=== PATIENT | female | born 1965 | race Caucasian/White ===

== ENCOUNTER → 2016-04-22 | Outpatient (CLI) | payer BC ==
[~2016-04-22] MED LIST: /AUGM875TA OR; ACETAMIN PO; ALEV220C2 PO; ALRE0.5S OU; AMIT24CA5 PO; BUTALB PO; CAFF PO; CHASTE TREE PO; CHLORAPHIL PO; CHLOROPHYLL PO; CIPR500T89 PO; DULO1CAP2 PO; DYMI137S; FIORTAB PO; FLAG500T PO; FOLI1TAB2 PO; HUMI40KI2 SC; IMIT100T OR; ISOVUE-M 300 61% 15ML VIAL (Q9967) As Ordered ONE; LEVOTAB10 PO; LIDO1DIS2 TD; LIDOCAINE 1% SDV INJ 30 ML VIAL As Ordered ONE; MELA5TAB13 PO; META800T82 PO; METH2.5TA PO; MOVA1TAB2 PO; NEXI40CA PO; OSPH1TAB PO; OYST500T PO; PRED5TA PO; PROBCAP4 PO; REST0.05 OP; ROBA500T PO; SING10TA32 PO; SOMA350T PO; TPS CREAM EXT; TRAM37.5 PO; TRAZ50TA2 PO; VICO5TA PO; XANA0.25 PO; XANA0.5T PO; ZANA4CAP PO; [UNRECOGNIZED DRUG - CODE] PO; [UNRECOGNIZED DRUG - CODE] PO; [UNRECOGNIZED DRUG - OTHER] OU; [UNRECOGNIZED DRUG - OTHER] PO; [UNRECOGNIZED DRUG - OTHER] PO; [UNRECOGNIZED DRUG - OTHER] PO; [UNRECOGNIZED DRUG - OTHER] PO; [UNRECOGNIZED DRUG - OTHER] PO; [UNRECOGNIZED DRUG - OTHER] PO; [UNRECOGNIZED DRUG - OTHER] PO; [UNRECOGNIZED DRUG - OTHER] PO; [UNRECOGNIZED DRUG - OTHER] PO; [UNRECOGNIZED DRUG - REMARK] TOP; allegra PO; cataplex PO; diazePAM 5 MG TAB As Ordered ONE; iodine PO; methylPREDNISolone SUSP 40 MG/ML (DEPO-medrol) VIAL (J1030) As Ordered ONE; oxyCODONE 5MG TAB As Ordered ONE; pataday; plaquinel PO; probiotic PO; tumeric PO
--- NOTE | 2016-04-22 16:50 | REP ---
Coccyx series: Three views limited study. History: Caudal epidural steroid injection for pain. 9 seconds of fluoroscopy time is reported. Findings: A sequence of three fluoroscopically obtained procedural spot radiographs of the coccyx demonstrate needle position and contrast injection associated with caudal epidural injection procedure. Signed by Travis Diego MD 04/22/2016 09:59 P
--- NOTE | 2016-04-27 01:43 | ECWPNPC ---
PATIENT NAME: DUANE TENORIO : 1965 GENDER: FEMALE VISIT DATE: 04/22/2016 DISCHARGE DATE: 04/22/16 1109 VISIT LOCKED DATE TIME: PHYSICIAN: DANICA JOHNSON PHYSICIAN PAGER NO: [phone] RESOURCE: DANICA JOHNSON REASON FOR APPOINTMENT 1. CAUDAL EPIDURAL CURRENT MEDICATIONS TAKING HYDROCODONE-ACETAMINOPHEN 5-325 MG TABLET 1 TABLET NEEDED ORALLY EVERY 6 HRS PRN FOR PAIN MDD2, NOTES: MORE THAN A MONTH TAKING IMITREX 100 MG TABLET DIRECTED ORALLY , NOTES: 1 MONTH TAKING AMITIZA 24 MCG CAPSULE 1 CAPSULE WITH FOOD ORALLY ONCE A DAY, NOTES: 04-21-161729 TAKING NEXIUM 40 MG CAPSULE DELAYED RELEASE 1 CAPSULE ORALLY ONCE A DAY, NOTES: 04-22-16499 TAKING SINGULAIR 10 MG TABLET 1 TABLET IN THE EVENING ORALLY ONCE A DAY, NOTES: 1729 TAKING LEVOCETIRIZINE DIHYDROCHLORIDE 5 MG TABLET 1 TABLET IN THE EVENING ORALLY ONCE A DAY, NOTES: 04-21-161729 TAKING DULOXETINE HCL 30 MG CAPSULE DELAYED RELEASE PARTICLES 1 CAPSULE ORALLY ONCE A DAY, NOTES: 04-22-16499 TAKING DYMISTA 137-50 MCG/ACT SUSPENSION 1 SPRAY IN EACH NOSTRIL NASALLY TWICE A DAY, NOTES: 04-21-161729 TAKING PATADAY 0.2 % SOLUTION 1 DROP OPHTHALMIC DAILY, NOTES: 04-21-161729 TAKING CULTURELLE DIGESTIVE HEALTH - CAPSULE ORALLY DAILY, NOTES: 04-22-16499 TAKING XANAX 0.25 MG TABLET 1 TABLET ORALLY DAILY NEEDED., NOTES: 2 DAYS AGO TAKING SOMA 350 MG TABLET 1 TABLET NEEDED ORALLY BEFORE BEDTIME FOR SPASMS AND PAIN, NOTES: OVER A MONTH TAKING CIMZIA 2 X 200 MG KIT SUBCUTANEOUS 1 INJECTION OF 200 MG EVERY 2 WEEK, NOTES: 04-07-16 NOT-TAKING HUMIRA PEN 40 MG/0.8ML KIT 0.8 ML SUBCUTANEOUS EVERY TWO WEEKS, NOTES: 2 WEEKS NOT-TAKING IMITREX STATDOSE SYSTEM 4 MG/0.5ML KIT DIRECTED SUBCUTANEOUS NOT-TAKING ALREX 0.2 % SUSPENSION 1 DROP INTO AFFECTED EYE OPHTHALMIC FOUR TIMES A DAY MEDICATION LIST REVIEWED AND RECONCILED WITH THE PATIENT PAST MEDICAL HISTORY "SACRAL INSTABILITY" PER DR. DONOVAN SINCE FALLIN ON BUTTOCKS DURING A ROLLERBLADING ACCIDENT DYSPEPSIA/GERD DJD STATUS POST L5/S1 LAM[address] BRODERICK 2000 MIGRAINE HEADACHES OVEWEIGHT ALLERGIC RHINITIS/CONJUNCTIVITIS RECURRENT SINUSITIS STATUS POST SINUS SURGERY X2 BY DR[address] LAU VITAMIN D DEFICIENCY HISTORY OF IDIOPATHIC INCREASED AST/ALT SYSEMTIC LUPUS ALLERGIES PLAQUENIL: RASH: ALLERGY TAPE: RASH: ALLERGY ENVIRONMENTAL: ITCHING RASH: ALLERGY TEGADERM/OPSITE: BLISTERS, REDNESS, ITCHING: ALLERGY SURGICAL HISTORY NO SURGICAL HISTORY DOCUMENTED. HOSPITALIZATION/MAJOR DIAGNOSTIC PROCEDURE NO HOSPITALIZATION HISTORY. VITAL SIGNS WT 160 LBS, HT 67 IN, BMI 25.06 INDEX, BP 119/76 MM HG, HR 62 /MIN, RR 16 /MIN, TEMP 98.0 F, OXYGEN SAT % 100%, NA INITIALS SC 08:59, REVIEWED BY: LS. ASSESSMENTS POSTLAMINECTOMY SYNDROME, NOT ELSEWHERE CLASSIFIED - M96.1 (PRIMARY) PROCEDURES PN CAUDAL EPIDURALS PRE PROCEDURE DIAGNOSIS LUMBAR POST LAMINECTOMY PAIN SYNDROME POST PROCEDURE DIAGNOSIS LUMBAR POST LAMINECTOMY PAIN SYNDROME PROCEDURE CAUDAL EPIDURAL STEROID INJECTION UNDER FLUOROSCOPIC GUIDANCE. SURGEON DR. DANICA JOHNSON EMERGING TECHNOLOGIES DIRECTOR NONE ANESTHESIA LOCAL PRE PROCEDURE NOTE THE PATIENT HAS HISTORY OF CHRONIC LOW BACK PAIN. I EVALUATE THE PATIENT AND REVIEWED THE CHART. I WENT OVER THE RISKS, ALTERNATIVES, AND BENEFITS ASSOCIATED WITH THIS PROCEDURE. THE PATIENT WOULD LIKE TO PROCEED AND GIVE CONSENT TO PERFORMED THE PROCEDURE. THE PATIENT DENIES UNEXPLAINABLE WEIGHT LOSS, FEVER, CHILLS, OR NEW CHANGES IN URINARY OR BOWEL CONTROL. DESCRIPTION OF PROCEDURE THE PATIENT WAS BROUGHT TO THE PROCEDURE ROOM AND PLACED IN THE PRONE POSITION. THE LUMBOSACRAL AREA WAS CLEANED WITH BETADINE SOLUTION AND DRAPED ASEPTICALLY. THE PROCEDURE WAS DONE UNDER STERILE CONDITIONS. I CHECKED LATERALITY AND THE LEVEL WHERE THE PROCEDURE WAS GOING TO BE PERFORMED WITH THE PATIENT AND THE SUPPORTING STAFF AT THE MOMENT OF THE TIME OUT IN THE PROCEDURE ROOM. UNDER FLUOROSCOPIC GUIDANCE, THE TARGET POINT WAS SELECTED AT THE EPIDURAL SPACE BELOW THE SACROCOCCYGEAL LIGAMENT. LIDOCAINE 0.5% WAS USE TO NUMB THE SKIN AND THE SUBCUTANEOUS TISSUE BELOW IT. AN EPIDURAL TUOHY NEEDLE, 17-GAUGE, WAS ADVANCED UNDER FLUOROSCOPIC GUIDANCE AND FOLLOWING PATIENT FEEDBACK UNTIL THE EPIDURAL SPACE WAS REACHED 6 CM DEEP INTO THE SKIN BY THE LOSS OF RESISTANCE TECHNIQUE. ISOVUE M DYE 30%, 0.25 ML, WAS INJECTED SHOWING ADEQUATE SPREAD OF THE DYE. THEN, A SOLUTION OF 6 ML OF NORMAL SALINE WITH DEPO-MEDROL 60 MG WAS INJECTED SLOWLY FOLLOWING THE PATIENT FEEDBACK. THERE WAS NO EVIDENCE OF BLOOD, PARESTHESIA OR CEREBROSPINAL FLUID DURING THE PROCEDURE. THE PATIENT WAS SENT TO THE RECOVERY ROOM. THE PATIENT WAS MOVING THE EXTREMITIES AND DOING WELL. THERE WAS NO COMPLICATION DURING THE PROCEDURE. FLUOROSCOPY TIME WAS 9 SECONDS POST PROCEDURE NOTE THE PATIENT WILL BE SEEN IN A FOLLOW UP IN THE NEXT FEW WEEKS. INSTRUCTIONS WERE GIVEN, QUESTIONS WERE ANSWERED, AND THE PATIENT EXPRESSED UNDERSTANDING AND AGREES WITH THE PLAN PROCEDURE CODES 23290 LUMBAR/SACRAL W/ IMAGING 6045F RADXPS IN END [id number] PXD FOLLOW UP 3 WEEKS ELECTRONICALLY SIGNED BY DANICA JOHNSON MD ON 04/26/2016 AT 01:32 PM EST DISCLAIMER : THIS IS A VISIT SUMMARY EXTRACTED FROM THE [employer] CHART. IT IS NOT A COPY OF THE [employer] PROGRESS NOTE. MTDD
== END ==
LOC: M PAIN 09:10
PROVIDERS: ATTEND Anesthesiology
DX: G89.29 Other chronic pain (principal); M96.1 Postlaminectomy syndrome, not elsewhere classified; M54.5 Low back pain; M51.37 Other intervertebral disc degeneration, lumbosacral region; M53.3 Sacrococcygeal disorders, not elsewhere classified; K21.9 Gastro-esophageal reflux disease without esophagitis; G43.909 Migraine, unspecified, not intractable, without status migrainosus; E66.3 Overweight; J30.89 Other allergic rhinitis; E55.9 Vitamin D deficiency, unspecified; M32.9 Systemic lupus erythematosus, unspecified; Z88.8 Allergy status to other drugs, medicaments and biological substances; L23.1 Allergic contact dermatitis due to adhesives; Z79.891 Long term (current) use of opiate analgesic; Z79.899 Other long term (current) drug therapy
CPT/HCPCS: 62323; J1030; Q9967

== ENCOUNTER → 2016-05-06 | Outpatient (CLI) | payer BC ==
[~2016-05-06] MED LIST changes: -ISOVUE-M 300 61% 15ML VIAL (Q9967) As Ordered ONE; -LIDOCAINE 1% SDV INJ 30 ML VIAL As Ordered ONE; -diazePAM 5 MG TAB As Ordered ONE; -methylPREDNISolone SUSP 40 MG/ML (DEPO-medrol) VIAL (J1030) As Ordered ONE; -oxyCODONE 5MG TAB As Ordered ONE
--- NOTE | 2016-05-12 23:36 | ECWPNPC ---
PATIENT NAME: DUANE TENORIO : 1965 GENDER: FEMALE VISIT DATE: 05/06/2016 DISCHARGE DATE: 05/06/16 1647 VISIT LOCKED DATE TIME: PHYSICIAN: DANICA JOHNSON PHYSICIAN PAGER NO: [phone] RESOURCE: DANICA JOHNSON REASON FOR APPOINTMENT 1. LOWER BACK HISTORY OF PRESENT ILLNESS HISTORY OF PRESENT ILLNESS: PAIN THE PATIENT DESCRIBES THE PAIN... 50 YEAR OLD FEMALE PATIENT WITH HISTORY OF CHRONIC BACK PAIN. PATIENT DESCRIBES THE PAIN SHOOTING, AND HAVING IT ALL THE TIME WITH A PAIN SCORE OF 3/10. PATIENT STATES THAT HER RIGHT LEG IS WEAKER AND SHE FEELS THAT WHEN SHE WALKS, SHE FEELS HER LEG DRAGGING. PATIENT STATES THAT SHE HAS A TINGLING/PRESSURE FEELING ON HIS RIGHT LEG. PATIENT RECEIVED A CAUDAL EPIDURAL ON 04-22-2016. PATIENT IS NOT SURE AT THIS PATIENT HOW THE INJECTION WORKED. PATIENT STATES 3 DAYS AFTER THE PROCEDURE SHE FELL ASLEEP ON THE COUCH, HAD A MUSCLE SPASM WOKE UP, ATTEMPTED TO GET UP AND FELL. PATIENT DENIES UNEXPLAINABLE WEIGHT LOSS, FEVER, CHILLS, NEW CHANGES ON HER URINARY OR BOWEL CONTROL. FALL RISK SCREENING: SCREENING :NO FALLS IN THE PAST YEAR CURRENT MEDICATIONS TAKING HYDROCODONE-ACETAMINOPHEN 5-325 MG TABLET 1 TABLET NEEDED ORALLY EVERY 6 HRS PRN FOR PAIN MDD2 TAKING IMITREX 100 MG TABLET DIRECTED ORALLY TAKING AMITIZA 24 MCG CAPSULE 1 CAPSULE WITH FOOD ORALLY ONCE A DAY TAKING NEXIUM 40 MG CAPSULE DELAYED RELEASE 1 CAPSULE ORALLY ONCE A DAY TAKING SINGULAIR 10 MG TABLET 1 TABLET IN THE EVENING ORALLY ONCE A DAY TAKING LEVOCETIRIZINE DIHYDROCHLORIDE 5 MG TABLET 1 TABLET IN THE EVENING ORALLY ONCE A DAY TAKING DULOXETINE HCL 30 MG CAPSULE DELAYED RELEASE PARTICLES 1 CAPSULE ORALLY ONCE A DAY TAKING DYMISTA 137-50 MCG/ACT SUSPENSION 1 SPRAY IN EACH NOSTRIL NASALLY TWICE A DAY TAKING PATADAY 0.2 % SOLUTION 1 DROP OPHTHALMIC DAILY TAKING CULTURELLE DIGESTIVE HEALTH - CAPSULE ORALLY DAILY TAKING XANAX 0.25 MG TABLET 1 TABLET ORALLY DAILY NEEDED. TAKING CIMZIA 2 X 200 MG KIT SUBCUTANEOUS 1 INJECTION OF 200 MG EVERY 2 WEEK, NOTES: 04-07-16 TAKING ULTRACET 37.5-325 MG TABLET 1 TABLETS NEEDED ORALLY EVERY 6 HRS FOR PAIN MDD4 TAKING METHOCARBAMOL 500 MG TABLET 10 ML NEEDED ORALLY EVERY 8 HRS PT TAKES 1/2 NOT-TAKING SOMA 350 MG TABLET 1 TABLET NEEDED ORALLY BEFORE BEDTIME FOR SPASMS AND PAIN, NOTES: OVER A MONTH NOT-TAKING HUMIRA PEN 40 MG/0.8ML KIT 0.8 ML SUBCUTANEOUS EVERY TWO WEEKS, NOTES: 2 WEEKS NOT-TAKING IMITREX STATDOSE SYSTEM 4 MG/0.5ML KIT DIRECTED SUBCUTANEOUS NOT-TAKING ALREX 0.2 % SUSPENSION 1 DROP INTO AFFECTED EYE OPHTHALMIC FOUR TIMES A DAY MEDICATION LIST REVIEWED AND RECONCILED WITH THE PATIENT PAST MEDICAL HISTORY "SACRAL INSTABILITY" PER DR. DONOVAN SINCE FALLIN ON BUTTOCKS DURING A ROLLERBLADING ACCIDENT DYSPEPSIA/GERD DJD STATUS POST L5/S1 LAM[address]CT[address] BRODERICK 2000 MIGRAINE HEADACHES OVEWEIGHT ALLERGIC RHINITIS/CONJUNCTIVITIS RECURRENT SINUSITIS STATUS POST SINUS SURGERY X2 BY DR[address] LAU VITAMIN D DEFICIENCY HISTORY OF IDIOPATHIC INCREASED AST/ALT SYSEMTIC LUPUS ALLERGIES PLAQUENIL: RASH: ALLERGY TAPE: RASH: ALLERGY ENVIRONMENTAL: ITCHING RASH: ALLERGY TEGADERM/OPSITE: BLISTERS, REDNESS, ITCHING: ALLERGY SURGICAL HISTORY APPENDECTOMY [id number] HERNIA 06/25 ESOPHAGEAL MANOMETRY WITH NONSPECIFIC ESOPHAGEAL MOTOR DISORDER WITH LOW VELOCITY OF PROPAGATION AND HIGH CONTRACTION IN MIDESOPHAGUS 06/25 FAMILY HISTORY NO FAMILY HISTORY DOCUMENTED. SOCIAL HISTORY GENERAL: TOBACCO USE ARE YOU A:NONSMOKER LEARNING BARRIERS / SPECIAL NEEDS ORIENTED TO PLAN OF CARE: PATIENT, PAIN MANAGEMENT PATIENT, ORIENTED TO PLAN OF CARE: PATIENT, PAIN MANAGEMENT PATIENT. NEW PATIENT PAIN DIARY TODAY'S VISITNOTES FROM 0-10, WHAT LEVEL IS YOUR PAIN TODAY?0 PAIN CLINIC PFS, CLERGY, PUBLIC HEALTH REFERRALS PFS REFERRAL NEEDED?NO CLERGY REFERRAL NEEDED?NO PUBLIC HEALTH REFERRAL NEEDED?NO WAS THE PROVIDER NOTIFIED OF ANY PERTINENT INFO?NO PFS REFERRAL NEEDED?NO CLERGY REFERRAL NEEDED?NO PUBLIC HEALTH REFERRAL NEEDED?NO WAS THE PROVIDER NOTIFIED OF ANY PERTINENT INFO?NO HOSPITALIZATION/MAJOR DIAGNOSTIC PROCEDURE NO HOSPITALIZATION HISTORY. REVIEW OF SYSTEMS CONSTITUTIONAL: ANY CHANGE IN YOUR MEDICAL CONDITION? NO . CHILLS NO . FEVER NO . INFECTION: DO YOU HAVE NEW INFECTIONS? NO . DO YOU HAVE HISTORY OF MRSA? NO . MUSCULOSKELETAL: ANY NEW PATTERNS OF PAIN OR NUMBNESS? YES SINCE PROCEDURE AND FALL . GASTROENTEROLOGY: ANY NEW CHANGE IN BOWEL CONTROL? NO . GENITOURINARY: ANY NEW CHANGE IN BLADDER CONTROL? NO . IS THERE A CHANCE YOU COULD BE ? NO . HEMATOLOGY/LYMPH: DO YOU TAKE ANY BLOOD THINNERS? (FOR EXAMPLE- COUMADIN, PLAVIX, AGGRENOX, PLATEL, PRADAXA, OR XARELTO) NO . WHEN WAS YOUR LAST DOSE? DATE: TIME: . NEUROLOGY: HAVE YOU FALLEN IN THE PAST 6 MONTHS? YES 3 DAYS AFTER PROCEDURE HERE . ANY NEW EXTREMITY NUMBNESS OR WEAKNESS? NO . CARDIOLOGY: DO YOU HAVE A PACEMAKER OR DEFIBRILLATOR? NO . RESPIRATORY: HAVE YOU BEEN SICK IN THE PAST WEEK? NO . FEVER NO . FLU LIKE SYMPTOMS? NO . COUGH NO . INTEGUMENTARY: DO YOU HAVE ANY RASHES OR OPEN SORES? NO . ALLERGIC/IMMUNO: ARE YOU ALLERGIC TO SHELLFISH OR IV DYE? NO . ANY NEW ALLERGIES? NO . PSYCHIATRIC: DO YOU HAVE THOUGHTS OF HURTING YOURSELF OR SOMEONE ELSE? NO . ARE YOU ABUSED, NEGLECTED, OR IN AN UNSAFE ENVIRONMENT? NO . ENDOCRINOLOGY: ARE YOU DIABETIC? NO . OTHER: DO YOU NEED ANY PRESCRIPTIONS? NO . IF YES, PLEASE LIST: ____ . ANY NEW PROBLEMS WITH YOUR MEDICATIONS? NO . WHEN DID YOU LAST EAT? ____ . WHEN DID YOU LAST DRINK? ____ . WHAT DID YOU LAST DRINK? ____ . NAME OF PERSON DRIVING YOU HOME? ____ . DO YOU HAVE ANY OTHER QUESTIONS OR CONCERNS NO . REVIEWED BY: PROVIDER: DANICA JOHNSON MD . VITAL SIGNS WT 160 LBS, HT 67 IN, BMI 25.06 INDEX, BP 127/69 MM HG, HR 90 /MIN, RR 16 /MIN, TEMP 98.6 F, OXYGEN SAT % 96%, NA INITIALS SC 15:10. EXAMINATION : PATIENT IS ALERT O X 3 AND COOPERATIVE. RIGHT LEG IS WEAKER AT EXTENSION AND FLEXION COMPARED TO THE LEFT LEG. 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 MRI OF THE LUMBAR SPINE DONE ON 01/09/16 SHOWS SPONDYLOSIS, FACET HYPERTROPHY, AND DISC BULGES AT L2-L3 AND L4-L5. ASSESSMENTS POSTLAMINECTOMY SYNDROME, NOT ELSEWHERE CLASSIFIED - M96.1 (PRIMARY) INTERVERTEBRAL DISC DISORDERS WITH RADICULOPATHY, LUMBAR REGION - M51.16 INTERVERTEBRAL DISC DISORDERS WITH RADICULOPATHY, LUMBOSACRAL REGION - M51.17 TREATMENT POSTLAMINECTOMY SYNDROME, NOT ELSEWHERE CLASSIFIED NOTES: WE DISCUSSES SEVERAL ISSUES WITH MS. MUKHERJEE'S PAIN MANAGEMENT CASE. AT THIS TIME THE PATIENT WILL CONTINUE WITH THE SAME MEDICATION REGIME BEFORE. AFTER FURTHER REVIEW OF THE MRI AT THIS TIME THE PATIENT IS A GOOD CANDIDATE FOR A TRANSFORAMINAL EPIDURAL. PATIENT WILL BE BOOKED PENDING APPROVAL. WE DISCUSSED THE RISK, ALTERNATIVES, AND BENEFITS AND THE PATIENT WOULD LIKE TO PROCEED. INSTRUCTIONS WERE GIVEN, QUESTIONS WERE ANSWERED, PATIENT REPORTS UNDERSTANDING AND AGREES WITH THE PLAN. I, MIRZA DE LA PAZ, DOCUMENTED THE ABOVE INFORMATION ACTING A SCRIBE FOR DR. JOHNSON. I HAVE REVIEWED THE ABOVE DOCUMENT, WRITTEN BY MIRZA DE LA PAZ SCRIBVelma AND I VERIFY THAT IT IS ACCURATE. PREVENTIVE MEDICINE PAIN CLINIC TEACHING: PROCEDURE TEACHING REVIEWED PRE PROCEDURE EUCATION WITH PT/ WHO VERBALIZES UNDERSTNADING. PROCEDURE CODES FA211 ESTABILISHED PATIENT [facility] CHARGE G8730 PAIN ASSESS POS TOOL F/U PLAN DOC G8427 DOC MEDS VERIFIED W/PT OR RE FOLLOW UP TRANSFORAMINAL PENDING APPROVAL ELECTRONICALLY SIGNED BY DANICA JOHNSON MD ON 05/12/2016 AT 09:36 PM EST DISCLAIMER : THIS IS A VISIT SUMMARY EXTRACTED FROM THE [employer] CHART. IT IS NOT A COPY OF THE [employer] PROGRESS NOTE. MTDD
== END ==
LOC: M PAIN 15:00
PROVIDERS: ATTEND Anesthesiology
DX: Z09 Encounter for follow-up examination after completed treatment for conditions other than malignant neoplasm (principal); G89.29 Other chronic pain; M96.1 Postlaminectomy syndrome, not elsewhere classified; M51.16 Intervertebral disc disorders with radiculopathy, lumbar region; M51.17 Intervertebral disc disorders with radiculopathy, lumbosacral region; K30 Functional dyspepsia; G43.909 Migraine, unspecified, not intractable, without status migrainosus; J32.9 Chronic sinusitis, unspecified; E55.9 Vitamin D deficiency, unspecified; M32.9 Systemic lupus erythematosus, unspecified; J30.89 Other allergic rhinitis; L23.1 Allergic contact dermatitis due to adhesives; J30.2 Other seasonal allergic rhinitis; Z88.8 Allergy status to other drugs, medicaments and biological substances; Z79.891 Long term (current) use of opiate analgesic; Z79.899 Other long term (current) drug therapy; Z87.39 Personal history of other diseases of the musculoskeletal system and connective tissue

== ENCOUNTER → 2016-05-20 | Outpatient (CLI) | payer BC ==
[2016-05-20 17:58] LABS: ANION GAP 7 MEQ/L (8-16); BLOOD UREA NITROGEN 16 MG/DL (7-18); CALCIUM LEVEL 9.3 MG/DL (8.5-10.1); CARBON DIOXIDE LEVEL 31 MEQ/L (21-32); CHLORIDE LEVEL 101 MEQ/L (98-107); CREATININE FOR GFR 0.89 MG/DL (0.55-1.02); GLOMERULAR FILTRATION RATE > 60.0 (>51); GLUCOSE, FASTING 75 MG/DL (70-105); MAGNESIUM LEVEL 2.4 MG/DL (1.8-2.4); POTASSIUM SERUM 4.1 MEQ/L (3.5-5.1); SODIUM LEVEL 139 MEQ/L (136-145)
== END | disposition home or self-care (01) ==
LOC: M SMT 15:21
PROVIDERS: ATTEND Physician Assistant
DX: G47.62 Sleep related leg cramps (principal)

== ENCOUNTER → 2016-05-26 | Outpatient (CLI) | payer BC ==
[~2016-05-26] MED LIST changes: +BUPIVACAINE HCL 0.25% 30 ML VIAL As Ordered ONE; +ISOVUE-M 300 61% 15ML VIAL (Q9967) As Ordered ONE; +LIDOCAINE 1% SDV INJ 30 ML VIAL As Ordered ONE; +MIDAZOLAM INJ 2 MG/2 ML VIAL (J2250) As Ordered ONE; +dexameTHASONE 10 MG/1 ML VIAL PRES.FREE (J1100) As Ordered ONE; +fentaNYL 100 MCG/2 ML INJECTION (J3010) As Ordered ONE
--- NOTE | 2016-05-26 16:37 | REP ---
Partial lumbar spine series: Six views. History: Transforaminal block procedure for pain. 1 minute 17 seconds of fluoroscopy time is reported. Findings: A sequence of six fluoroscopically obtained intraprocedural last image hold and angiographic spot images are presented. These document needle position and contrast injection associated with injection procedure. Signed by Travis Diego MD 05/26/2016 05:12 P
--- NOTE | 2016-05-28 23:56 | ECWPNPC ---
PATIENT NAME: DUANE TENORIO : 1965 GENDER: FEMALE VISIT DATE: 05/26/2016 DISCHARGE DATE: 05/26/16 1631 VISIT LOCKED DATE TIME: PHYSICIAN: DANICA JOHNSON PHYSICIAN PAGER NO: [phone] RESOURCE: DANICA JOHNSON REASON FOR APPOINTMENT 1. RIGHT TRANSFORAMINAL HISTORY OF PRESENT ILLNESS HISTORY OF PRESENT ILLNESS: PAIN THE PATIENT DESCRIBES THE PAIN... FALL RISK SCREENING: SCREENING :NO FALLS IN THE PAST YEAR CURRENT MEDICATIONS TAKING HYDROCODONE-ACETAMINOPHEN 5-325 MG TABLET 1 TABLET NEEDED ORALLY EVERY 6 HRS PRN FOR PAIN MDD2, NOTES: 3 WEEKS AGO TAKING IMITREX 100 MG TABLET DIRECTED ORALLY , NOTES: 1 MONTH TAKING AMITIZA 24 MCG CAPSULE 1 CAPSULE WITH FOOD ORALLY ONCE A DAY, NOTES: 05/25 4:30PM TAKING NEXIUM 40 MG CAPSULE DELAYED RELEASE 1 CAPSULE ORALLY ONCE A DAY, NOTES: 05/26 5AM TAKING SINGULAIR 10 MG TABLET 1 TABLET IN THE EVENING ORALLY ONCE A DAY, NOTES: 05/25 4:30PM TAKING LEVOCETIRIZINE DIHYDROCHLORIDE 5 MG TABLET 1 TABLET IN THE EVENING ORALLY ONCE A DAY, NOTES: 05/25 4:30PM TAKING DULOXETINE HCL 30 MG CAPSULE DELAYED RELEASE PARTICLES 1 CAPSULE ORALLY ONCE A DAY, NOTES: 05/26 5AM TAKING DYMISTA 137-50 MCG/ACT SUSPENSION 1 SPRAY IN EACH NOSTRIL NASALLY TWICE A DAY, NOTES: 05/25 4:30PM TAKING PATADAY 0.2 % SOLUTION 1 DROP OPHTHALMIC DAILY, NOTES: 05/26 2AM TAKING CULTURELLE DIGESTIVE HEALTH - CAPSULE ORALLY DAILY, NOTES: 05/26 5AM TAKING XANAX 0.25 MG TABLET 1 TABLET ORALLY DAILY NEEDED., NOTES: 05/23 8PM TAKING CIMZIA 2 X 200 MG KIT SUBCUTANEOUS 1 INJECTION OF 200 MG EVERY 2 WEEK, NOTES: 2 1/2 WEEKS AGO TAKING ULTRACET 37.5-325 MG TABLET 1 TABLETS NEEDED ORALLY EVERY 6 HRS FOR PAIN MDD4, NOTES: 3 WEEKS TAKING METHOCARBAMOL 500 MG TABLET 10 ML NEEDED ORALLY EVERY 8 HRS PT TAKES 1/2, NOTES: 4 DAYS AGO NOT-TAKING SOMA 350 MG TABLET 1 TABLET NEEDED ORALLY BEFORE BEDTIME FOR SPASMS AND PAIN, NOTES: OVER A MONTH NOT-TAKING HUMIRA PEN 40 MG/0.8ML KIT 0.8 ML SUBCUTANEOUS EVERY TWO WEEKS, NOTES: 2 WEEKS NOT-TAKING IMITREX STATDOSE SYSTEM 4 MG/0.5ML KIT DIRECTED SUBCUTANEOUS NOT-TAKING ALREX 0.2 % SUSPENSION 1 DROP INTO AFFECTED EYE OPHTHALMIC FOUR TIMES A DAY MEDICATION LIST REVIEWED AND RECONCILED WITH THE PATIENT PAST MEDICAL HISTORY "SACRAL INSTABILITY" PER DR. DONOVAN SINCE FALLIN ON BUTTOCKS DURING A ROLLERBLADING ACCIDENT DYSPEPSIA/GERD DJD STATUS POST L5/S1 LAM[address] BRODERICK 2000 MIGRAINE HEADACHES OVEWEIGHT ALLERGIC RHINITIS/CONJUNCTIVITIS RECURRENT SINUSITIS STATUS POST SINUS SURGERY X2 BY DR[address] LAU VITAMIN D DEFICIENCY HISTORY OF IDIOPATHIC INCREASED AST/ALT SYSEMTIC LUPUS ALLERGIES PLAQUENIL: RASH: ALLERGY TAPE: RASH: ALLERGY ENVIRONMENTAL: ITCHING RASH: ALLERGY TEGADERM/OPSITE: BLISTERS, REDNESS, ITCHING: ALLERGY SOCIAL HISTORY GENERAL: TOBACCO USE ARE YOU A:NONSMOKER LEARNING BARRIERS / SPECIAL NEEDS ORIENTED TO PLAN OF CARE: PATIENT, PAIN MANAGEMENT PATIENT, ORIENTED TO PLAN OF CARE: PATIENT, PAIN MANAGEMENT PATIENT. NEW PATIENT PAIN DIARY TODAY'S VISITNOTES FROM 0-10, WHAT LEVEL IS YOUR PAIN TODAY?0 PAIN CLINIC PFS, CLERGY, PUBLIC HEALTH REFERRALS PFS REFERRAL NEEDED?NO CLERGY REFERRAL NEEDED?NO PUBLIC HEALTH REFERRAL NEEDED?NO WAS THE PROVIDER NOTIFIED OF ANY PERTINENT INFO?NO PFS REFERRAL NEEDED?NO CLERGY REFERRAL NEEDED?NO PUBLIC HEALTH REFERRAL NEEDED?NO WAS THE PROVIDER NOTIFIED OF ANY PERTINENT INFO?NO REVIEW OF SYSTEMS CONSTITUTIONAL: ANY CHANGE IN YOUR MEDICAL CONDITION? NO . CHILLS NO . FEVER NO . INFECTION: DO YOU HAVE NEW INFECTIONS? NO . DO YOU HAVE HISTORY OF MRSA? NO . MUSCULOSKELETAL: ANY NEW PATTERNS OF PAIN OR NUMBNESS? NO . GASTROENTEROLOGY: ANY NEW CHANGE IN BOWEL CONTROL? NO . GENITOURINARY: ANY NEW CHANGE IN BLADDER CONTROL? NO . IS THERE A CHANCE YOU COULD BE ? NO . HEMATOLOGY/LYMPH: DO YOU TAKE ANY BLOOD THINNERS? (FOR EXAMPLE- COUMADIN, PLAVIX, AGGRENOX, PLATEL, PRADAXA, OR XARELTO) NO . WHEN WAS YOUR LAST DOSE? DATE: TIME: . NEUROLOGY: HAVE YOU FALLEN IN THE PAST 6 MONTHS? YES, PT STATES THAT SHE FELL TWO DAYS AFTER LAST INJECTION, 3 WEEKS AGO, PT WAS HOME, NO REPORT TO ED, PT STATES THAT SHE HAD INCREASED LEG PAIN INTO THE HIP. . ANY NEW EXTREMITY NUMBNESS OR WEAKNESS? NO . CARDIOLOGY: DO YOU HAVE A PACEMAKER OR DEFIBRILLATOR? NO . RESPIRATORY: HAVE YOU BEEN SICK IN THE PAST WEEK? NO . FEVER NO . FLU LIKE SYMPTOMS? NO . COUGH NO . INTEGUMENTARY: DO YOU HAVE ANY RASHES OR OPEN SORES? NO . ALLERGIC/IMMUNO: ARE YOU ALLERGIC TO SHELLFISH OR IV DYE? NO . ANY NEW ALLERGIES? NO . PSYCHIATRIC: DO YOU HAVE THOUGHTS OF HURTING YOURSELF OR SOMEONE ELSE? NO . ARE YOU ABUSED, NEGLECTED, OR IN AN UNSAFE ENVIRONMENT? NO . ENDOCRINOLOGY: ARE YOU DIABETIC? NO . OTHER: DO YOU NEED ANY PRESCRIPTIONS? NO . IF YES, PLEASE LIST: ____ . ANY NEW PROBLEMS WITH YOUR MEDICATIONS? NO . WHEN DID YOU LAST EAT? 05/26 5:30AM . WHEN DID YOU LAST DRINK? 05/26 12NOON . WHAT DID YOU LAST DRINK? WATER . NAME OF PERSON DRIVING YOU HOME? ALAYNA SOUSA . DO YOU HAVE ANY OTHER QUESTIONS OR CONCERNS NO . REVIEWED BY: PROVIDER: . VITAL SIGNS WT 160 LBS, HT 67 IN, BMI 25.06 INDEX, BP 117/55 MM HG, HR 84 /MIN, RR 16 /MIN, TEMP 97.2 F, OXYGEN SAT % 97%, SAFE IN ENV? (Y/N) Y, NA INITIALS [place] 14:19, REVIEWED BY: SARBJIT. ASSESSMENTS INTERVERTEBRAL DISC DISORDERS WITH RADICULOPATHY, LUMBAR REGION - M51.16 (PRIMARY) PROCEDURES PN LUMBAR TRANSFORAMINAL BLOCKS PRE PROCEDURE DIAGNOSIS LUMBAR POST LAMINECTOMY PAIN SYNDROME POST PROCEDURE DIAGNOSIS LUMBAR POST LAMINECTOMY PAIN SYNDROME PROCEDURE RIGHT L4 TRANSFORAMINAL EPIDURAL STEROID INJECTION UNDER FLUOROSCOPIC GUIDANCE AND L5 TRANSFORAMINAL EPIDURAL STEROID INJECTION UNDER FLUOROSCOPIC GUIDANCE SURGEON DR DANICA JOHNSON REHAB RN NONE ANESTHESIA LOCAL WITH IV SEDATION PRE PROCEDURE NOTE PATIENT WITH HISTORY OF CHRONIC LOW BACK PAIN. I EVALUATE THE PATIENT AND REVIEWED THE CHART. I WENT OVER THE RISKS, ALTERNATIVES, AND BENEFITS ASSOCIATED WITH THIS PROCEDURE. THE PATIENT WOULD LIKE TO PROCEED AND GIVE CONSENT TO PERFORMED THE PROCEDURE. AFTER DISCUSSED ALTERNATIVES THE PATIENT EXPRESSED THAT SHE WANT TO PERFORMED THE PROCEDURE WITH IV SEDATION. THE PATIENT DENIES UNEXPLAINABLE WEIGHT LOSS, FEVER, CHILLS, OR CHANGES IN URINARY OR BOWEL CONTROL. DESCRIPTION OF PROCEDURE THE PATIENT HAD IV PLACED FOR SEDATION PRIOR TO ENTERING THE ROOM. THE PATIENT WAS BROUGHT TO THE PROCEDURE ROOM AND PLACED IN THE PRONE POSITION. THE LUMBOSACRAL AREA WAS CLEANED WITH BETADINE SOLUTION AND DRAPED ASEPTICALLY. THE PROCEDURE WAS DONE UNDER STERILE CONDITIONS. I CHECKED LATERALITY AND THE LEVEL WHERE THE PROCEDURE WAS GOING TO BE PERFORMED WITH THE PATIENT AND THE SUPPORTING STAFF AT THE MOMENT OF THE TIME OUT IN THE PROCEDURE ROOM. UNDER FLUOROSCOPIC GUIDANCE, TARGETS WERE SELECTED AT THE RIGHT TRANSFORAMINAL OPENING OF L4 AND THE RIGHT TRANSFORAMINAL OPENING OF L5. TARGET POINT WAS SELECTED AFTER LATERAL ROTATION AND TILT OF THE MAGNIFIER OF THE C-ARM. LIDOCAINE 0.5% WAS USED TO NUMB THE SKIN AND THE SUBCUTANEOUS TISSUE BELOW IT. AN EPIMED INTRODUCER 18-GAUGE WAS ADVANCED UNTIL WE WENT CLOSE TO THE SELECTED TRANSFORAMINAL OPENINGS. AFTER PROPER POSITION OF THE NEEDLES WAS ACHIEVED, A 22-GAUGE EPIMED NEEDLE WAS PLACED INSIDE OF THE INTRODUCER AND ADVANCED TO THE TRANSFORAMINAL OPENING OF THE SELECTED SITES. WHEN PROPER POSITION OF THE NEEDLE WAS ACHIEVED, ISOVUE M DYE 30%, 0.25 ML, WAS INJECTED SHOWING ADEQUATE SPREAD OF THE DYE. THIS WAS DONE UNDER DIGITAL SUBTRACTION AND ANGIOGRAPHY. THERE WAS NO VASCULAR UPDATE. THEN, A SOLUTION OF 2 ML OF BUPIVACAINE 0.25% AND DEXAMETHASONE 10 MG WAS INJECTED AT EACH SITE. THERE WAS NO EVIDENCE OF BLOOD, PARESTHESIA OR CEREBROSPINAL FLUID DURING THE PROCEDURE. THE PATIENT WAS SENT TO THE RECOVERY ROOM. THE PATIENT WAS MOVING THE EXTREMITIES AND DOING WELL. THERE WAS NO COMPLICATION DURING THE PROCEDURE. FLUOROSCOPY TIME WAS 1 MINUTE 17 SECONDS. THE PATIENT RECEIVED VERSED AND FENTANYL IV DURING THE PROCEDURE. FACE TO FACE TIME WITH IV SEDATION WAS 25 MINUTES POST PROCEDURE NOTE THE PROCEDURE DONE WAS DISCUSSED WITH THE PATIENT. THE PATIENT WILL BE SEEN IN A FOLLOW UP IN THE NEXT FEW WEEKS. INSTRUCTIONS WERE GIVEN, QUESTIONS WERE ANSWERED, AND THE PATIENT EXPRESSED UNDERSTANDING AND AGREES WITH THE PLAN. I, JAROCHO SANDHU, DOCUMENTED THE ABOVE INFORMATION ACTING A SCRIBE FOR DR. JOHNSON. I, DR. JOHNSON, HAVE REVIEWED THE ABOVE DOCUMENT, SCRIBED BY JAROCHO SANDHU, AND I VERIFY THAT IT IS ACCURATE DIAGNOSTIC IMAGING [facility] GUIDE SPINE INJECTION (PAIN)[id number] PROCEDURE CODES 75868 INJ FORAMEN EPIDURAL L/S 75861 INJ FORAMEN EPIDURAL ADD-ON 63977 MOD SED SAME PHYS/QHP EA 6045F RADXPS IN END [id number] PXD 52905 MOD SED SAME PHYS/QHP 5/>YRS FOLLOW UP 3 WEEKS ELECTRONICALLY SIGNED BY DANICA JOHNSON MD ON 05/28/2016 AT 01:36 PM EST DISCLAIMER : THIS IS A VISIT SUMMARY EXTRACTED FROM THE [employer] CHART. IT IS NOT A COPY OF THE [employer] PROGRESS NOTE. MTDD
== END ==
LOC: M PAIN 14:20
PROVIDERS: ATTEND Anesthesiology
DX: G89.29 Other chronic pain (principal); M51.16 Intervertebral disc disorders with radiculopathy, lumbar region; K30 Functional dyspepsia; M51.37 Other intervertebral disc degeneration, lumbosacral region; G43.909 Migraine, unspecified, not intractable, without status migrainosus; J30.89 Other allergic rhinitis; J32.9 Chronic sinusitis, unspecified; E55.9 Vitamin D deficiency, unspecified; M32.9 Systemic lupus erythematosus, unspecified; Z88.8 Allergy status to other drugs, medicaments and biological substances; L23.1 Allergic contact dermatitis due to adhesives; Z79.891 Long term (current) use of opiate analgesic; Z79.899 Other long term (current) drug therapy; Z87.39 Personal history of other diseases of the musculoskeletal system and connective tissue
CPT/HCPCS: 64483; 64484; 99152; 99153; J1100; J2250; J3010; Q9967

== ENCOUNTER → 2016-07-05 | Outpatient (CLI) | payer BC ==
[~2016-07-05] MED LIST changes: -BUPIVACAINE HCL 0.25% 30 ML VIAL As Ordered ONE; -ISOVUE-M 300 61% 15ML VIAL (Q9967) As Ordered ONE; -LIDOCAINE 1% SDV INJ 30 ML VIAL As Ordered ONE; -MIDAZOLAM INJ 2 MG/2 ML VIAL (J2250) As Ordered ONE; -dexameTHASONE 10 MG/1 ML VIAL PRES.FREE (J1100) As Ordered ONE; -fentaNYL 100 MCG/2 ML INJECTION (J3010) As Ordered ONE
--- NOTE | 2016-07-06 00:01 | ECWPNPC ---
PATIENT NAME: DUANE TENORIO : 1965 GENDER: FEMALE VISIT DATE: 07/05/2016 DISCHARGE DATE: 07/05/16 1647 VISIT LOCKED DATE TIME: PHYSICIAN: DANICA JOHNSON PHYSICIAN PAGER NO: [phone] RESOURCE: DANICA JOHNSON REASON FOR APPOINTMENT 1. FOLLOW UP HISTORY OF PRESENT ILLNESS HISTORY OF PRESENT ILLNESS: PAIN THE PATIENT DESCRIBES THE PAIN... 50 YEAR OLD FEMALE PATIENT WITH HISTORY OF CHRONIC BACK PAIN. PATIENT DESCRIBES THE PAIN PRESSURE IN THE RIGHT CALF WITH A PAIN SCORE OF 1/10 ON TODAY'S VISIT. PATIENT RECEIVED A L4-L5 TRANSFORAMINAL ON 05/26/2016 AND REPORTS OF DOING VERY WELL FROM THE PROCEDURE. PATIENT REPORTS THAT SHE IS SLEEPING BETTER, ABLE TO STAND FOR LONGER PERIODS OF TIME, AND IT IMPROVED HER QUALITY OF LIFE. PATIENT DENIES UNEXPLAINABLE WEIGHT LOSS, FEVER, CHILLS, NEW CHANGES ON HER URINARY OR BOWEL CONTROL. FALL RISK SCREENING: SCREENING :NO FALLS IN THE PAST YEAR CURRENT MEDICATIONS TAKING HYDROCODONE-ACETAMINOPHEN 5-325 MG TABLET 1 TABLET NEEDED ORALLY EVERY 6 HRS PRN FOR PAIN MDD2 TAKING IMITREX 100 MG TABLET DIRECTED ORALLY TAKING AMITIZA 24 MCG CAPSULE 1 CAPSULE WITH FOOD ORALLY ONCE A DAY TAKING NEXIUM 40 MG CAPSULE DELAYED RELEASE 1 CAPSULE ORALLY ONCE A DAY TAKING SINGULAIR 10 MG TABLET 1 TABLET IN THE EVENING ORALLY ONCE A DAY TAKING LEVOCETIRIZINE DIHYDROCHLORIDE 5 MG TABLET 1 TABLET IN THE EVENING ORALLY ONCE A DAY, NOTES: 05/25 4:30PM TAKING DULOXETINE HCL 30 MG CAPSULE DELAYED RELEASE PARTICLES 1 CAPSULE ORALLY ONCE A DAY TAKING DYMISTA 137-50 MCG/ACT SUSPENSION 1 SPRAY IN EACH NOSTRIL NASALLY TWICE A DAY TAKING PATADAY 0.2 % SOLUTION 1 DROP OPHTHALMIC DAILY TAKING CULTURELLE DIGESTIVE HEALTH - CAPSULE ORALLY DAILY TAKING XANAX 0.25 MG TABLET 1 TABLET ORALLY DAILY NEEDED. TAKING CIMZIA 2 X 200 MG KIT SUBCUTANEOUS 1 INJECTION OF 200 MG EVERY 2 WEEK TAKING METHOCARBAMOL 500 MG TABLET 10 ML NEEDED ORALLY EVERY 8 HRS PT TAKES 1/2 NOT-TAKING ULTRACET 37.5-325 MG TABLET 1 TABLETS NEEDED ORALLY EVERY 6 HRS FOR PAIN MDD4 NOT-TAKING SOMA 350 MG TABLET 1 TABLET NEEDED ORALLY BEFORE BEDTIME FOR SPASMS AND PAIN, NOTES: OVER A MONTH NOT-TAKING HUMIRA PEN 40 MG/0.8ML KIT 0.8 ML SUBCUTANEOUS EVERY TWO WEEKS, NOTES: 2 WEEKS NOT-TAKING IMITREX STATDOSE SYSTEM 4 MG/0.5ML KIT DIRECTED SUBCUTANEOUS NOT-TAKING ALREX 0.2 % SUSPENSION 1 DROP INTO AFFECTED EYE OPHTHALMIC FOUR TIMES A DAY PAST MEDICAL HISTORY "SACRAL INSTABILITY" PER DR. DONOVAN SINCE FALLIN ON BUTTOCKS DURING A ROLLERBLADING ACCIDENT DYSPEPSIA/GERD DJD STATUS POST L5/S1 LAMINECTOM[address] BRODERICK 2000 MIGRAINE HEADACHES OVEWEIGHT ALLERGIC RHINITIS/CONJUNCTIVITIS RECURRENT SINUSITIS STATUS POST SINUS SURGERY X2 BY DR[address] LAU VITAMIN D DEFICIENCY HISTORY OF IDIOPATHIC INCREASED AST/ALT SYSEMTIC LUPUS ALLERGIES PLAQUENIL: RASH: ALLERGY TAPE: RASH: ALLERGY ENVIRONMENTAL: ITCHING RASH: ALLERGY TEGADERM/OPSITE: BLISTERS, REDNESS, ITCHING: ALLERGY SURGICAL HISTORY APPENDECTOMY [id number] HERNIA 06/25 ESOPHAGEAL MANOMETRY WITH NONSPECIFIC ESOPHAGEAL MOTOR DISORDER WITH LOW VELOCITY OF PROPAGATION AND HIGH CONTRACTION IN MIDESOPHAGUS 06/25 FAMILY HISTORY NO FAMILY HISTORY DOCUMENTED. SOCIAL HISTORY GENERAL: TOBACCO USE ARE YOU A:NONSMOKER LEARNING BARRIERS / SPECIAL NEEDS ORIENTED TO PLAN OF CARE: PATIENT, PAIN MANAGEMENT PATIENT, ORIENTED TO PLAN OF CARE: PATIENT, PAIN MANAGEMENT PATIENT. NEW PATIENT PAIN DIARY TODAY'S VISITNOTES FROM 0-10, WHAT LEVEL IS YOUR PAIN TODAY?0 PAIN CLINIC PFS, CLERGY, PUBLIC HEALTH REFERRALS PFS REFERRAL NEEDED?NO CLERGY REFERRAL NEEDED?NO PUBLIC HEALTH REFERRAL NEEDED?NO WAS THE PROVIDER NOTIFIED OF ANY PERTINENT INFO?NO PFS REFERRAL NEEDED?NO CLERGY REFERRAL NEEDED?NO PUBLIC HEALTH REFERRAL NEEDED?NO WAS THE PROVIDER NOTIFIED OF ANY PERTINENT INFO?NO HOSPITALIZATION/MAJOR DIAGNOSTIC PROCEDURE NO HOSPITALIZATION HISTORY. REVIEW OF SYSTEMS CONSTITUTIONAL: ANY CHANGE IN YOUR MEDICAL CONDITION? NO . CHILLS NO . FEVER NO . INFECTION: DO YOU HAVE NEW INFECTIONS? NO . DO YOU HAVE HISTORY OF MRSA? NO . MUSCULOSKELETAL: ANY NEW PATTERNS OF PAIN OR NUMBNESS? NO . GASTROENTEROLOGY: ANY NEW CHANGE IN BOWEL CONTROL? NO . GENITOURINARY: ANY NEW CHANGE IN BLADDER CONTROL? NO . IS THERE A CHANCE YOU COULD BE ? NO . HEMATOLOGY/LYMPH: DO YOU TAKE ANY BLOOD THINNERS? (FOR EXAMPLE- COUMADIN, PLAVIX, AGGRENOX, PLATEL, PRADAXA, OR XARELTO) NO . WHEN WAS YOUR LAST DOSE? DATE: TIME: . NEUROLOGY: HAVE YOU FALLEN IN THE PAST 6 MONTHS? NO . ANY NEW EXTREMITY NUMBNESS OR WEAKNESS? NO . CARDIOLOGY: DO YOU HAVE A PACEMAKER OR DEFIBRILLATOR? NO . RESPIRATORY: HAVE YOU BEEN SICK IN THE PAST WEEK? NO . FEVER NO . FLU LIKE SYMPTOMS? NO . COUGH NO . INTEGUMENTARY: DO YOU HAVE ANY RASHES OR OPEN SORES? NO . ALLERGIC/IMMUNO: ARE YOU ALLERGIC TO SHELLFISH OR IV DYE? NO . ANY NEW ALLERGIES? NO . PSYCHIATRIC: DO YOU HAVE THOUGHTS OF HURTING YOURSELF OR SOMEONE ELSE? NO . ARE YOU ABUSED, NEGLECTED, OR IN AN UNSAFE ENVIRONMENT? NO . ENDOCRINOLOGY: ARE YOU DIABETIC? NO . OTHER: DO YOU NEED ANY PRESCRIPTIONS? NO . IF YES, PLEASE LIST: ____ . ANY NEW PROBLEMS WITH YOUR MEDICATIONS? NO . WHEN DID YOU LAST EAT? ____ . WHEN DID YOU LAST DRINK? ____ . WHAT DID YOU LAST DRINK? ____ . NAME OF PERSON DRIVING YOU HOME? ____ . DO YOU HAVE ANY OTHER QUESTIONS OR CONCERNS NO . REVIEWED BY: PROVIDER: DANICA JOHNSON MD . VITAL SIGNS WT 160 LBS, HT 67 IN, BMI 25.06 INDEX, BP 124/70 MM HG, HR 82 /MIN, RR 16 /MIN, TEMP 97.0 F, OXYGEN SAT % 96, NA INITIALS HS. EXAMINATION : PATIENT IS ALERT O X 3 AND COOPERATIVE. PATIENT AMBULATES WITH A NORMAL GAIT. 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 TENORIO'S PAIN MANAGEMENT CASE. THE PATIENT IS DOING QUITE WELL AT THIS TIME. PATIENT WILL FOLLOW UP WITH TULIO SOLIS IN 2 MONTHS, INFORMED THE PATIENT THAT IF SHE NEEDS TO WE CAN SEE HER SOONER. , INSTRUCTIONS WERE GIVEN, QUESTIONS WERE ANSWERED, PATIENT REPORTS UNDERSTANDING AND AGREES WITH THE PLAN. I, MIRZA DE LA PAZ, DOCUMENTED THE ABOVE INFORMATION ACTING A SCRIBE FOR DR. JOHNSON. I HAVE REVIEWED THE ABOVE DOCUMENT, WRITTEN BY MIRZA STEELE AND I VERIFY THAT IT IS ACCURATE. PROCEDURE CODES FA211 ESTABILISHED PATIENT [facility] FACILITY CHARGE G8730 PAIN ASSESS POS TOOL F/U PLAN DOC G8427 DOC MEDS VERIFIED W/PT OR RE DISPOSITION & COMMUNICATION FOLLOW UP 2 MONTHS ELECTRONICALLY SIGNED BY DANICA JOHNSON MD ON 07/05/2016 AT 06:49 PM EDT DISCLAIMER : THIS IS A VISIT SUMMARY EXTRACTED FROM THE [employer] CHART. IT IS NOT A COPY OF THE [employer] PROGRESS NOTE. BERNARDOD
== END ==
LOC: M PAIN 15:00
PROVIDERS: ATTEND Anesthesiology
DX: Z09 Encounter for follow-up examination after completed treatment for conditions other than malignant neoplasm (principal); G89.29 Other chronic pain; M96.1 Postlaminectomy syndrome, not elsewhere classified; M51.17 Intervertebral disc disorders with radiculopathy, lumbosacral region; M51.16 Intervertebral disc disorders with radiculopathy, lumbar region; K21.9 Gastro-esophageal reflux disease without esophagitis; G43.909 Migraine, unspecified, not intractable, without status migrainosus; E55.9 Vitamin D deficiency, unspecified; M32.9 Systemic lupus erythematosus, unspecified; Z79.899 Other long term (current) drug therapy; Z88.8 Allergy status to other drugs, medicaments and biological substances; L23.1 Allergic contact dermatitis due to adhesives; J30.9 Allergic rhinitis, unspecified

== ENCOUNTER → 2016-09-01 | Outpatient (REF) | payer BC ==
[2016-09-02 14:00] LABS: CALCIUM OXALATE CRYSTALS SMALL
== END ==
LOC: M LAB REF 13:03
PROVIDERS: ATTEND Obstetrics & Gynecology
DX: B37.3 Candidiasis of vulva and vagina (principal); N30.10 Interstitial cystitis (chronic) without hematuria

== ENCOUNTER → 2016-09-06 | Outpatient (CLI) | payer BC ==
--- NOTE | 2016-09-24 00:47 | ECWPNPC ---
PATIENT NAME: DUANE TENORIO : 1965 GENDER: FEMALE VISIT DATE: 09/06/2016 DISCHARGE DATE: 09/06/16 1604 VISIT LOCKED DATE TIME: PHYSICIAN: TULIO SOLIS PHYSICIAN PAGER NO: [phone] RESOURCE: TULIO SOLIS REASON FOR APPOINTMENT 1. NECK/BACK HISTORY OF PRESENT ILLNESS HISTORY OF PRESENT ILLNESS: HERE FOR F/U AND MANAGEMENT OF CHRONIC LOW BACK PAIN.WAS DOING WELL UNTIL 3 WEEKS AGO AFTER WALKING IN [place].HAS BEEN HAVING INCREASE IN LOW BACK PAIN L>R.PAIN IS DISRUPTING TO HER SLEEP. RATING PAIN VAS 4/10.DISCUSSED MEDICATION AND TREATMENT OPTIONS.PAIN IS AGGREVATED BY BENDING.PAIN RELIEVED SOMEWHAT WITH ICE. PAIN THE PATIENT DESCRIBES THE PAIN... FALL RISK SCREENING: SCREENING :NO FALLS IN THE PAST YEAR CURRENT MEDICATIONS TAKING HYDROCODONE-ACETAMINOPHEN 5-325 MG TABLET 1 TABLET NEEDED ORALLY EVERY 6 HRS PRN FOR PAIN MDD2 TAKING IMITREX 100 MG TABLET DIRECTED ORALLY TAKING AMITIZA 24 MCG CAPSULE 1 CAPSULE WITH FOOD ORALLY ONCE A DAY TAKING NEXIUM 40 MG CAPSULE DELAYED RELEASE 1 CAPSULE ORALLY ONCE A DAY TAKING SINGULAIR 10 MG TABLET 1 TABLET IN THE EVENING ORALLY ONCE A DAY TAKING LEVOCETIRIZINE DIHYDROCHLORIDE 5 MG TABLET 1 TABLET IN THE EVENING ORALLY ONCE A DAY, NOTES: 05/25 4:30PM TAKING DULOXETINE HCL 30 MG CAPSULE DELAYED RELEASE PARTICLES 1 CAPSULE ORALLY ONCE A DAY TAKING DYMISTA 137-50 MCG/ACT SUSPENSION 1 SPRAY IN EACH NOSTRIL NASALLY TWICE A DAY TAKING PATADAY 0.2 % SOLUTION 1 DROP OPHTHALMIC DAILY TAKING CULTUREE [employer] [facility] - CAPSULE ORALLY DAILY TAKING XANAX 0.25 MG TABLET 1 TABLET ORALLY DAILY NEEDED. TAKING ENBREL 50 MG/ML SOLUTION 1 ML SUBCUTANEOUS WEEKLY/ SAT TAKING MAGNESIUM 400 MG CAPSULE ORALLY DAILY AT HS TAKING TURMERIC 500 MG CAPSULE ORALLY DAILY AT BEDTIME NOT-TAKING CIMZIA 2 X 200 MG KIT SUBCUTANEOUS 1 INJECTION OF 200 MG EVERY 2 WEEK NOT-TAKING METHOCARBAMOL 500 MG TABLET 10 ML NEEDED ORALLY EVERY 8 HRS PT TAKES 1/2 NOT-TAKING ULTRACET 37.5-325 MG TABLET 1 TABLETS NEEDED ORALLY EVERY 6 HRS FOR PAIN MDD4 NOT-TAKING SOMA 350 MG TABLET 1 TABLET NEEDED ORALLY BEFORE BEDTIME FOR SPASMS AND PAIN, NOTES: OVER A MONTH NOT-TAKING HUMIRA PEN 40 MG/0.8ML KIT 0.8 ML SUBCUTANEOUS EVERY TWO WEEKS, NOTES: 2 WEEKS NOT-TAKING IMITREX STATDOSE SYSTEM 4 MG/0.5ML KIT DIRECTED SUBCUTANEOUS NOT-TAKING ALREX 0.2 % SUSPENSION 1 DROP INTO AFFECTED EYE OPHTHALMIC FOUR TIMES A DAY MEDICATION LIST REVIEWED AND RECONCILED WITH THE PATIENT PAST MEDICAL HISTORY "SACRAL INSTABILITY" PER DR. DONOVAN SINCE FALLIN ON BUTTOCKS DURING A ROLLERBLADING ACCIDENT DYSPEPSIA/GERD DJD STATUS POST L5/S[address]AM[address] BRODERICK 2000 MIGRAINE HEADACHES OVEWEIGHT ALLERGIC RHINITIS/CONJUNCTIVITIS RECURRENT SINUSITIS STATUS POST SINUS SURGERY X2 BY DR[address] 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 ALLERGIES PLAQUENIL: RASH: ALLERGY TAPE: RASH: ALLERGY ENVIRONMENTAL: ITCHING RASH: ALLERGY TEGADERM/OPSITE: BLISTERS, REDNESS, ITCHING: ALLERGY CIMZIA: SEVERE MUSCLE PAIN ARMS REVIEW OF SYSTEMS CONSTITUTIONAL: ANY CHANGE IN YOUR MEDICAL CONDITION? NO . CHILLS NO . FEVER NO . INFECTION: DO YOU HAVE NEW INFECTIONS? NO . DO YOU HAVE HISTORY OF MRSA? NO . MUSCULOSKELETAL: ANY NEW PATTERNS OF PAIN OR NUMBNESS? YES, BACK . GASTROENTEROLOGY: ANY NEW CHANGE IN BOWEL CONTROL? NO . GENITOURINARY: ANY NEW CHANGE IN BLADDER CONTROL? NO . IS THERE A CHANCE YOU COULD BE ? NO . HEMATOLOGY/LYMPH: DO YOU TAKE ANY BLOOD THINNERS? (FOR EXAMPLE- COUMADIN, PLAVIX, AGGRENOX, PLATEL, PRADAXA, OR XARELTO) NO . WHEN WAS YOUR LAST DOSE? DATE: TIME: . NEUROLOGY: HAVE YOU FALLEN IN THE PAST 6 MONTHS? NO . ANY NEW EXTREMITY NUMBNESS OR WEAKNESS? NO . CARDIOLOGY: DO YOU HAVE A PACEMAKER OR DEFIBRILLATOR? NO . RESPIRATORY: HAVE YOU BEEN SICK IN THE PAST WEEK? NO . FEVER NO . FLU LIKE SYMPTOMS? NO . COUGH NO . INTEGUMENTARY: DO YOU HAVE ANY RASHES OR OPEN SORES? NO . ALLERGIC/IMMUNO: ARE YOU ALLERGIC TO SHELLFISH OR IV DYE? NO . ANY NEW ALLERGIES? YES, CIMZIA . PSYCHIATRIC: DO YOU HAVE THOUGHTS OF HURTING YOURSELF OR SOMEONE ELSE? NO . ARE YOU ABUSED, NEGLECTED, OR IN AN UNSAFE ENVIRONMENT? NO . ENDOCRINOLOGY: ARE YOU DIABETIC? NO . OTHER: DO YOU NEED ANY PRESCRIPTIONS? NO . IF YES, PLEASE LIST: ____ . ANY NEW PROBLEMS WITH YOUR MEDICATIONS? NO . WHEN DID YOU LAST EAT? ____ . WHEN DID YOU LAST DRINK? ____ . WHAT DID YOU LAST DRINK? ____ . NAME OF PERSON DRIVING YOU HOME? ____ . DO YOU HAVE ANY OTHER QUESTIONS OR CONCERNS NO . REVIEWED BY: PROVIDER: TULIO CLARKE . VITAL SIGNS WT 160 LBS, HT 67 IN, BMI 25.06 INDEX, BP 123/58 MM HG, HR 81 /MIN, RR 16 /MIN, TEMP 97.6 F, OXYGEN SAT % 98, NA INITIALS MP, REVIEWED BY: NL. EXAMINATION LUMBAR SPINE/LOWER BACK: PALPATION:NO SI JOINT TENDERNESS, PARASPINAL TENDERNESS, MYOFASCIAL TRIGGER POINTS-BILATERAL PARASPINAL REGION. MOTOR SYSTEM:5/5 BLE. SENSORY EXAM:DECREASED SENSATION OVER RIGHT CALF AREA(CHRONIC SINCE L/S SURGERY). GENERAL EXAMINATION: LUNGS:LUNG BACON ARE CLEAR TO AUSCULTATION BILATERALLY. GOOD MOVEMENT OF AIR. HEART:S1, S2 IN A REGULAR RATE AND RHYTHM. NO SIGNIFICANT MURMURS, RUBS OR GALLOPS NOTED. ASSESSMENTS MYOFASCIAL PAIN - M79.1 (PRIMARY) POSTLAMINECTOMY SYNDROME, NOT ELSEWHERE CLASSIFIED - M96.1 (PRIMARY) INTERVERTEBRAL DISC DISORDERS WITH RADICULOPATHY, LUMBOSACRAL REGION - M51.17 TREATMENT MYOFASCIAL PAIN NOTES: I WILL REQUEST TPI BILATERAL LOW BACKASPERCREAM W LIDOCAINE ACETAMINOPHEN 650MG. PREVENTIVE MEDICINE PAIN CLINIC TEACHING: PROCEDURE TEACHING PRE PROCEDURAL INSTRUCTIONS REVIEWED WITH PT. PT IS NOT TO STOP ENBREL, PER Sandra SOLIS. PT'S HARDCOPY INFORMATION SHEET REFLECTS THIS.. PROCEDURE CODES FA211 ESTABILISHED PATIENT [facility] FACILITY CHARGE DISPOSITION & COMMUNICATION FOLLOW UP 2 WEEKS POST (REASON: I WILL REQUEST TPI BILATERAL LOW BACK) ELECTRONICALLY SIGNED BY TRICIA LADD ON 09/23/2016 AT 05:22 PM EDT DISCLAIMER : THIS IS A VISIT SUMMARY EXTRACTED FROM THE [employer] CHART. IT IS NOT A COPY OF THE [employer] PROGRESS NOTE. JANETTE
== END ==
LOC: M PAIN 15:00
PROVIDERS: ATTEND Nurse Practitioner Family
DX: G89.29 Other chronic pain (principal); M79.1 Myalgia; M96.1 Postlaminectomy syndrome, not elsewhere classified; M51.17 Intervertebral disc disorders with radiculopathy, lumbosacral region; K21.9 Gastro-esophageal reflux disease without esophagitis; G43.909 Migraine, unspecified, not intractable, without status migrainosus; E66.3 Overweight; M53.2X8 Spinal instabilities, sacral and sacrococcygeal region; J30.9 Allergic rhinitis, unspecified; H10.45 Other chronic allergic conjunctivitis; E55.9 Vitamin D deficiency, unspecified; M32.9 Systemic lupus erythematosus, unspecified; M06.9 Rheumatoid arthritis, unspecified; Z91.048 Other nonmedicinal substance allergy status; Z88.8 Allergy status to other drugs, medicaments and biological substances; Z79.891 Long term (current) use of opiate analgesic; Z79.899 Other long term (current) drug therapy

== ENCOUNTER → 2016-09-23 | Outpatient (CLI) | payer BC ==
[2016-09-23 20:28] LABS: BASO % 0.7 % (0.0-1.0); LARGE UNSTAINED CELL # 0.1 K/mm3 (0.0-0.4); LARGE UNSTAINED CELL % 2.5 % (0.0-4.0); LYMPH # 2.1 K/mm3 (1.5-4.5); LYMPH % 37.4 % (24.0-44.0); MEAN CORPUSCULAR HEMOGLOBIN 31.4 pg (27.0-33.0); MEAN CORPUSCULAR HGB CONC 33.9 g/dl (32.0-36.5); MEAN CORPUSCULAR VOLUME 92.6 fl (80.0-96.0); MONO # 0.4 K/mm3 (0.0-0.8); MONO % 6.5 % (0.0-5.0); NEUTROPHILS # 2.8 K/mm3 (1.8-7.7); NEUTROPHILS % 51.9 % (36.0-66.0); PLATELET COUNT, AUTOMATED 177 k/mm3 (150-450); RED CELL DISTRIBUTION WIDTH 12.3 % (11.5-14.5); WHITE BLOOD COUNT 5.4 K/mm3 (4.0-10.0)
[2016-09-23 20:33] LABS: ALBUMIN 4.1 GM/DL (3.2-5.2); ALBUMIN/GLOBULIN RATIO 1.32 (1.00-1.93); ALKALINE PHOSPHATASE 93 U/L (45-117); ALT/SGPT 43 U/L (12-78); AMYLASE 72 U/L (25-115); ANION GAP 6 MEQ/L (8-16); AST/SGOT 26 U/L (15-37); BILIRUBIN,TOTAL 0.3 MG/DL (0.2-1.0); BLOOD UREA NITROGEN 15 MG/DL (7-18); CALCIUM LEVEL 9.1 MG/DL (8.5-10.1); CARBON DIOXIDE LEVEL 31 MEQ/L (21-32); CHLORIDE LEVEL 103 MEQ/L (98-107); CREATININE FOR GFR 0.82 MG/DL (0.55-1.02); GLOMERULAR FILTRATION RATE > 60.0 (>51); GLUCOSE, FASTING 81 MG/DL (70-105); POTASSIUM SERUM 4.7 MEQ/L (3.5-5.1); SODIUM LEVEL 140 MEQ/L (136-145); TOTAL PROTEIN 7.2 GM/DL (6.4-8.2)
== END ==
LOC: M ADAMS 17:10
PROVIDERS: ATTEND Physician Assistant Medical
DX: M32.10 Systemic lupus erythematosus, organ or system involvement unspecified (principal); R10.33 Periumbilical pain

== ENCOUNTER → 2016-10-06 | Outpatient (CLI) | payer BC ==
[~2016-10-06] MED LIST changes: -AMIT24CA5 PO; +AMIT24CA7 PO; +BUPIVACAINE HCL 0.25% 10 ML VIAL As Ordered ONE; +BUPIVACAINE HCL 0.25% 30 ML VIAL As Ordered ONE; -FOLI1TAB2 PO; +FOLI1TAB4 PO; +TRIAMCINOLONE ACETONIDE SUSP 40 MG/ML VIAL (J3301) As Ordered ONE
--- NOTE | 2016-10-19 23:20 | ECWPNPC ---
PATIENT NAME: DUANE TENORIO : 1965 GENDER: FEMALE VISIT DATE: 10/06/2016 DISCHARGE DATE: 10/06/161651 VISIT LOCKED DATE TIME: PHYSICIAN: DANICA JOHNSON PHYSICIAN PAGER NO: [phone] RESOURCE: DANICA JOHNSON REASON FOR APPOINTMENT 1. BILATERAL LOW BACK HISTORY OF PRESENT ILLNESS HISTORY OF PRESENT ILLNESS: PAIN THE PATIENT DESCRIBES THE PAIN... FALL RISK SCREENING: SCREENING :NO FALLS IN THE PAST YEAR CURRENT MEDICATIONS TAKING IMITREX 100 MG TABLET DIRECTED ORALLY , NOTES: 3 WEEKS AGO TAKING AMITIZA 24 MCG CAPSULE 1 CAPSULE WITH FOOD ORALLY ONCE A DAY, NOTES: 10/05/161729 TAKING NEXIUM 40 MG CAPSULE DELAYED RELEASE 1 CAPSULE ORALLY ONCE A DAY, NOTES: 10/06/16529 TAKING SINGULAIR 10 MG TABLET 1 TABLET IN THE EVENING ORALLY ONCE A DAY, NOTES: 10/05/161729 TAKING LEVOCETIRIZINE DIHYDROCHLORIDE 5 MG TABLET 1 TABLET IN THE EVENING ORALLY ONCE A DAY, NOTES: 10/05/161729 TAKING DULOXETINE HCL 30 MG CAPSULE DELAYED RELEASE PARTICLES 1 CAPSULE ORALLY ONCE A DAY, NOTES: 10/06/16529 TAKING DYMISTA 137-50 MCG/ACT SUSPENSION 1 SPRAY IN EACH NOSTRIL NASALLY TWICE A DAY, NOTES: 10/06/16529 TAKING PATADAY 0.2 % SOLUTION 1 DROP OPHTHALMIC DAILY, NOTES: 10/06/16529 TAKING CULTURELLE DIGESTIVE HEALTH - CAPSULE ORALLY DAILY, NOTES: 10/06/16529 TAKING XANAX 0.25 MG TABLET 1 TABLET ORALLY DAILY NEEDED., NOTES: 3 DAYS AGO TAKING ENBREL 50 MG/ML SOLUTION 1 ML SUBCUTANEOUS WEEKLY/ SAT, NOTES: 10/02/16 1230 TAKING MAGNESIUM 400 MG CAPSULE ORALLY DAILY AT HS, NOTES: 10/05/161729 TAKING TURMERIC 500 MG CAPSULE ORALLY DAILY AT BEDTIME, NOTES: 10/05/161729 NOT-TAKING HYDROCODONE-ACETAMINOPHEN 5-325 MG TABLET 1 TABLET NEEDED ORALLY EVERY 6 HRS PRN FOR PAIN MDD2 NOT-TAKING CIMZIA 2 X 200 MG KIT SUBCUTANEOUS 1 INJECTION OF 200 MG EVERY 2 WEEK NOT-TAKING METHOCARBAMOL 500 MG TABLET 10 ML NEEDED ORALLY EVERY 8 HRS PT TAKES 1/2 NOT-TAKING ULTRACET 37.5-325 MG TABLET 1 TABLETS NEEDED ORALLY EVERY 6 HRS FOR PAIN MDD4 NOT-TAKING SOMA 350 MG TABLET 1 TABLET NEEDED ORALLY BEFORE BEDTIME FOR SPASMS AND PAIN, NOTES: OVER A MONTH NOT-TAKING HUMIRA PEN 40 MG/0.8ML KIT 0.8 ML SUBCUTANEOUS EVERY TWO WEEKS, NOTES: 2 WEEKS NOT-TAKING IMITREX STATDOSE SYSTEM 4 MG/0.5ML KIT DIRECTED SUBCUTANEOUS NOT-TAKING ALREX 0.2 % SUSPENSION 1 DROP INTO AFFECTED EYE OPHTHALMIC FOUR TIMES A DAY MEDICATION LIST REVIEWED AND RECONCILED WITH THE PATIENT PAST MEDICAL HISTORY "SACRAL INSTABILITY" PER DR. DONOVAN SINCE FALLIN ON BUTTOCKS DURING A ROLLERBLADING ACCIDENT DYSPEPSIA/GERD DJD STATUS POST L5/S1 LAM[address]CT[address] BRODERICK 2000 MIGRAINE HEADACHES OVEWEIGHT ALLERGIC RHINITIS/CONJUNCTIVITIS RECURRENT SINUSITIS STATUS POST SINUS SURGERY X2 BY DR[address] 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 ALLERGIES PLAQUENIL: RASH: ALLERGY TAPE: RASH: ALLERGY ENVIRONMENTAL: ITCHING RASH: ALLERGY TEGADERM/OPSITE: BLISTERS, REDNESS, ITCHING: ALLERGY CIMZIA: SEVERE MUSCLE PAIN ARMS: SIDE EFFECTS SURGICAL HISTORY APPENDECTOMY 1985 [id number] HERNIA 06/25 ESOPHAGEAL MANOMETRY WITH NONSPECIFIC ESOPHAGEAL MOTOR DISORDER WITH LOW VELOCITY OF PROPAGATION AND HIGH CONTRACTION IN MIDESOPHAGUS 06/25 COLON RESECTION, CHOLECYSTECTOMY, REMOVAL RIGHT OVARIAN CYST 07/2012 CERVICAL FUSION C5-6 2014 LAMINECTOMY L5-S1 2002 REMOVAL RIGHT WRIST GANGLION CYST 2016 REMOVAL RIGHT WRIST GANGLION CYST 2003 SINUS SURGERY SOCIAL HISTORY GENERAL: TOBACCO USE ARE YOU A:NONSMOKER LEARNING BARRIERS / SPECIAL NEEDS ORIENTED TO PLAN OF CARE: PATIENT, PAIN MANAGEMENT PATIENT, ORIENTED TO PLAN OF CARE: PATIENT, PAIN MANAGEMENT PATIENT. NEW PATIENT PAIN DIARY TODAY'S VISITNOTES FROM 0-10, WHAT LEVEL IS YOUR PAIN TODAY?0 PAIN CLINIC PFS, CLERGY, PUBLIC HEALTH REFERRALS PFS REFERRAL NEEDED?NO CLERGY REFERRAL NEEDED?NO PUBLIC HEALTH REFERRAL NEEDED?NO WAS THE PROVIDER NOTIFIED OF ANY PERTINENT INFO?NO PFS REFERRAL NEEDED?NO CLERGY REFERRAL NEEDED?NO PUBLIC HEALTH REFERRAL NEEDED?NO WAS THE PROVIDER NOTIFIED OF ANY PERTINENT INFO?NO HOSPITALIZATION/MAJOR DIAGNOSTIC PROCEDURE SURGERIES REVIEW OF SYSTEMS REVIEWED BY: PROVIDER: . CONSTITUTIONAL: ANY CHANGE IN YOUR MEDICAL CONDITION? NO . CHILLS NO . FEVER NO . INFECTION: DO YOU HAVE NEW INFECTIONS? NO . DO YOU HAVE HISTORY OF MRSA? NO . MUSCULOSKELETAL: ANY NEW PATTERNS OF PAIN OR NUMBNESS? YES, INTERMITTENT SI PAIN WHICH IS HAPPENING MORE OFTEN THAN DESCRIBED TODAY . GASTROENTEROLOGY: ANY NEW CHANGE IN BOWEL CONTROL? NO . GENITOURINARY: ANY NEW CHANGE IN BLADDER CONTROL? NO . IS THERE A CHANCE YOU COULD BE ? NO . HEMATOLOGY/LYMPH: DO YOU TAKE ANY BLOOD THINNERS? (FOR EXAMPLE- COUMADIN, PLAVIX, AGGRENOX, PLATEL, PRADAXA, OR XARELTO) NO . WHEN WAS YOUR LAST DOSE? DATE: TIME: . NEUROLOGY: HAVE YOU FALLEN IN THE PAST 6 MONTHS? YES . ANY NEW EXTREMITY NUMBNESS OR WEAKNESS? NO . CARDIOLOGY: DO YOU HAVE A PACEMAKER OR DEFIBRILLATOR? NO . RESPIRATORY: HAVE YOU BEEN SICK IN THE PAST WEEK? NO . FEVER NO . FLU LIKE SYMPTOMS? NO . COUGH NO . INTEGUMENTARY: DO YOU HAVE ANY RASHES OR OPEN SORES? NO . ALLERGIC/IMMUNO: ARE YOU ALLERGIC TO SHELLFISH OR IV DYE? NO . ANY NEW ALLERGIES? NO . PSYCHIATRIC: DO YOU HAVE THOUGHTS OF HURTING YOURSELF OR SOMEONE ELSE? NO . ARE YOU ABUSED, NEGLECTED, OR IN AN UNSAFE ENVIRONMENT? NO . ENDOCRINOLOGY: ARE YOU DIABETIC? NO . OTHER: DO YOU NEED ANY PRESCRIPTIONS? NO . IF YES, PLEASE LIST: ____ . ANY NEW PROBLEMS WITH YOUR MEDICATIONS? NO . WHEN DID YOU LAST EAT? 0530 . WHEN DID YOU LAST DRINK? 1230 . WHAT DID YOU LAST DRINK? WATER . NAME OF PERSON DRIVING YOU HOME? DAUGHTER . DO YOU HAVE ANY OTHER QUESTIONS OR CONCERNS NO . VITAL SIGNS WT 160 LBS, HT 67 IN, BMI 25.06 INDEX, BP 119/55 MM HG, HR 72 /MIN, RR 16 /MIN, TEMP 98.9 F, OXYGEN SAT % 97%, NA INITIALS TL 1449PATIENT STATES HER BP NORMALLY RUNS LOW- TL. ASSESSMENTS MYALGIA - M79.1 (PRIMARY) PROCEDURES PN TRIGGER POINT INJECTION WITH STEROIDS PRE PROCEDURE DIAGNOSIS 1. MYALGIA 2. PAIN AT BILATERAL LOW BACK AREA POST PROCEDURE DIAGNOSIS 1. MYALGIA 2. PAIN AT BILATERAL LOW BACK AREA PROCEDURE TRIGGER POINT INJECTION AT BILATERAL LOW BACK AREA SURGEON DR. DANICA JOHNSON GUNSMITH APPRENTICE NONE ANESTHESIA LOCAL PRE PROCEDURE NOTE THE PATIENT HAS A HISTORY OF CHRONIC PAIN AT THE RIGHT AND LEFT LOW BACK AREA. I EVALUATE THE PATIENT AND REVIEWED THE CHART. THERE IS EVIDENCE OF BANDS OF TISSUE WITH RESTRICTION OF MOVEMENT AND PRESENCE OF TRIGGER POINT AT THE AFFECTED AREA. I WENT OVER THE RISKS, ALTERNATIVES, AND BENEFITS ASSOCIATED WITH THIS PROCEDURE. THE PATIENT WOULD LIKE TO PROCEED AND GIVE CONSENT TO PERFORMED THE PROCEDURE. THE PATIENT DENIES UNEXPLAINABLE WEIGHT LOSS, FEVER, CHILLS, OR NEW CHANGES IN URINARY OR BOWEL CONTROL DESCRIPTION OF PROCEDURE THE PATIENT WAS BROUGHT TO THE PROCEDURE ROOM AND PLACED IN THE SITTING POSITION. THE AREA WAS CLEANED WITH ALCOHOL. THE PROCEDURE WAS DONE USING ASEPTIC STERILE TECHNIQUE. I CHECKED LATERALITY AND THE LEVEL WHERE THE PROCEDURE WAS GOING TO BE PERFORMED WITH THE PATIENT AND THE SUPPORTING STAFF AT THE MOMENT OF THE TIME OUT IN THE PROCEDURE ROOM. USING A 25-GAUGE NEEDLE, TRIGGER POINTS WERE INJECTED AT THE RIGHT AND LEFT LOW BACK AREA WITH A TOTAL OF 40 ML OF BUPIVACAINE 0.25% AND KENALOG 40 MG. THERE WAS NO EVIDENCE OF BLOOD, PARESTHESIA OR CEREBROSPINAL FLUID DURING THE PROCEDURE. THE PATIENT WAS SENT TO THE RECOVERY ROOM. THE PATIENT WAS MOVING THE EXTREMITIES AND DOING WELL. THERE WAS NO COMPLICATION DURING THE PROCEDURE POST PROCEDURE NOTE THE PATIENT WILL BE SEEN IN A FOLLOW UP IN THE NEXT FEW WEEKS. INSTRUCTIONS WERE GIVEN, QUESTIONS WERE ANSWERED, AND THE PATIENT EXPRESSED UNDERSTANDING AND AGREES WITH THE PLAN. I, MIRZA DE LA PAZ, DOCUMENTED THE ABOVE INFORMATION ACTING A SCRIBE FOR DR. JOHNSON. I HAVE REVIEWED THE ABOVE DOCUMENT, WRITTEN BY MIRZA STEELE AND I VERIFY THAT IT IS ACCURATE PROCEDURE CODES 69906 INJ TRIGGER POINT 04/19 [facility] [facility] [place] COMMUNICATION FOLLOW UP 3 WEEKS ELECTRONICALLY SIGNED BY DANICA JOHNSON MD ON 10/19/2016 AT 09:59 PM EDT DISCLAIMER : THIS IS A VISIT SUMMARY EXTRACTED FROM THE [employer] CHART. IT IS NOT A COPY OF THE [employer] PROGRESS NOTE. JANETTE
== END ==
LOC: M PAIN 15:00
PROVIDERS: ATTEND Anesthesiology
DX: G89.29 Other chronic pain (principal); M79.1 Myalgia; K21.9 Gastro-esophageal reflux disease without esophagitis; M51.36 Other intervertebral disc degeneration, lumbar region; G43.909 Migraine, unspecified, not intractable, without status migrainosus; E66.3 Overweight; H10.45 Other chronic allergic conjunctivitis; J30.9 Allergic rhinitis, unspecified; E55.9 Vitamin D deficiency, unspecified; M32.9 Systemic lupus erythematosus, unspecified; M06.9 Rheumatoid arthritis, unspecified; Z79.899 Other long term (current) drug therapy; Z68.25 Body mass index [BMI] 25.0-25.9, adult
CPT/HCPCS: 20552; J3301

== ENCOUNTER → 2016-10-27 | Outpatient (CLI) | payer BC ==
[~2016-10-27] MED LIST changes: -BUPIVACAINE HCL 0.25% 10 ML VIAL As Ordered ONE; -BUPIVACAINE HCL 0.25% 30 ML VIAL As Ordered ONE; -TRIAMCINOLONE ACETONIDE SUSP 40 MG/ML VIAL (J3301) As Ordered ONE
[2016-10-27 20:08] LABS: ALBUMIN 4.2 GM/DL (3.2-5.2); ALBUMIN/GLOBULIN RATIO 1.35 (1.00-1.93); ALKALINE PHOSPHATASE 104 U/L (45-117); ALT/SGPT 39 U/L (12-78); ANION GAP 6 MEQ/L (8-16); AST/SGOT 24 U/L (15-37); BILIRUBIN,TOTAL 0.4 MG/DL (0.2-1.0); BLOOD UREA NITROGEN 14 MG/DL (7-18); CALCIUM LEVEL 8.9 MG/DL (8.5-10.1); CARBON DIOXIDE LEVEL 28 MEQ/L (21-32); CHLORIDE LEVEL 101 MEQ/L (98-107); CREATININE FOR GFR 0.79 MG/DL (0.55-1.02); GLOMERULAR FILTRATION RATE > 60.0 (>51); GLUCOSE, FASTING 101 MG/DL (70-105); POTASSIUM SERUM 4.2 MEQ/L (3.5-5.1); SODIUM LEVEL 135 MEQ/L (136-145); TOTAL PROTEIN 7.3 GM/DL (6.4-8.2)
[2016-10-27 20:32] LABS: BASO # 0.1 K/mm3 (0.0-0.2); BASO % 1.3 % (0.0-1.0); EOS % 0.6 % (0.0-3.0); LARGE UNSTAINED CELL # 0.2 K/mm3 (0.0-0.4); LARGE UNSTAINED CELL % 2.6 % (0.0-4.0); LYMPH # 2.2 K/mm3 (1.5-4.5); LYMPH % 35.2 % (24.0-44.0); MEAN CORPUSCULAR HEMOGLOBIN 31.7 pg (27.0-33.0); MEAN CORPUSCULAR HGB CONC 34.7 g/dl (32.0-36.5); MEAN CORPUSCULAR VOLUME 91.2 fl (80.0-96.0); MONO # 0.3 K/mm3 (0.0-0.8); NEUTROPHILS # 3.4 K/mm3 (1.8-7.7); NEUTROPHILS % 55.4 % (36.0-66.0); PLATELET COUNT, AUTOMATED 182 k/mm3 (150-450); RED CELL DISTRIBUTION WIDTH 12.2 % (11.5-14.5); WHITE BLOOD COUNT 6.2 K/mm3 (4.0-10.0)
[2016-10-27 22:12] LABS: ERYTHROCYTE SEDIMENTATION RATE 7 mm/hr (0-30)
== END ==
LOC: M ADAMS 15:53
PROVIDERS: ATTEND Internal Medicine Rheumatology
DX: M06.00 Rheumatoid arthritis without rheumatoid factor, unspecified site (principal); R76.8 Other specified abnormal immunological findings in serum; M25.50 Pain in unspecified joint; H04.123 Dry eye syndrome of bilateral lacrimal glands

== ENCOUNTER → 2016-11-15 | Outpatient (CLI) | payer BC ==
--- NOTE | 2016-12-03 00:58 | ECWPNPC ---
PATIENT NAME: DUANE TENORIO : 1965 GENDER: FEMALE VISIT DATE: 11/15/2016 DISCHARGE DATE: 11/15/16 1630 VISIT LOCKED DATE TIME: PHYSICIAN: TULIO SOLIS PHYSICIAN PAGER NO: [phone] RESOURCE: TULIO SOLIS REASON FOR APPOINTMENT 1. LOW BACK HISTORY OF PRESENT ILLNESS HISTORY OF PRESENT ILLNESS: HERE FOR POST PROCEDURE F/U.HAD TPI LOW BACK ON 10-06-16.REPORTS NO SIGNIFICANT IMPROVEMENT.CHIEF AREA OF PAIN IS RIGHT LOW BACK .DESCRIBES PAIN INTERMITTENT BURNING AND THROBBING OVER RIGHT LOW BACK.RATING PAIN VAS 5/10.HAS RESPONDED WELL TO RIGHT L4/5 TRANSFORAMINAL BLOCK IN 05-26-16.CURRENTLY ON ENBREL THAT SHE TAKES ONCE PER WEEK.SHE IS AWARE ON STOPPING THIS 1 WEEK BEFORE INJECTION AND DOESNT RESTART UNTIL 2WK POST INJECTION. FALL RISK SCREENING: SCREENING :NO FALLS IN THE PAST YEAR CURRENT MEDICATIONS TAKING IMITREX 100 MG TABLET DIRECTED ORALLY TAKING AMITIZA 24 MCG CAPSULE 1 CAPSULE WITH FOOD ORALLY ONCE A DAY TAKING NEXIUM 40 MG CAPSULE DELAYED RELEASE 1 CAPSULE ORALLY ONCE A DAY TAKING SINGULAIR 10 MG TABLET 1 TABLET IN THE EVENING ORALLY ONCE A DAY TAKING LEVOCETIRIZINE DIHYDROCHLORIDE 5 MG TABLET 1 TABLET IN THE EVENING ORALLY ONCE A DAY TAKING DULOXETINE HCL 30 MG CAPSULE DELAYED RELEASE PARTICLES 1 CAPSULE ORALLY ONCE A DAY TAKING DYMISTA 137-50 MCG/ACT SUSPENSION 1 SPRAY IN EACH NOSTRIL NASALLY TWICE A DAY TAKING PATADAY 0.2 % SOLUTION 1 DROP OPHTHALMIC DAILY TAKING CULTUREE DIGESTIVE HEALTH - CAPSULE ORALLY DAILY TAKING XANAX 0.25 MG TABLET 1 TABLET ORALLY DAILY NEEDED. TAKING ENBREL 50 MG/ML SOLUTION 1 ML SUBCUTANEOUS WEEKLY/ SAT TAKING MAGNESIUM 400 MG CAPSULE ORALLY DAILY AT HS TAKING TURMERIC 500 MG CAPSULE ORALLY DAILY AT BEDTIME NOT-TAKING HYDROCODONE-ACETAMINOPHEN 5-325 MG TABLET 1 TABLET NEEDED ORALLY EVERY 6 HRS PRN FOR PAIN MDD2 NOT-TAKING CIMZIA 2 X 200 MG KIT SUBCUTANEOUS 1 INJECTION OF 200 MG EVERY 2 WEEK NOT-TAKING METHOCARBAMOL 500 MG TABLET 10 ML NEEDED ORALLY EVERY 8 HRS PT TAKES 1/2 NOT-TAKING ULTRACET 37.5-325 MG TABLET 1 TABLETS NEEDED ORALLY EVERY 6 HRS FOR PAIN MDD4 NOT-TAKING SOMA 350 MG TABLET 1 TABLET NEEDED ORALLY BEFORE BEDTIME FOR SPASMS AND PAIN, NOTES: OVER A MONTH NOT-TAKING HUMIRA PEN 40 MG/0.8ML KIT 0.8 ML SUBCUTANEOUS EVERY TWO WEEKS, NOTES: 2 WEEKS NOT-TAKING IMITREX STATDOSE SYSTEM 4 MG/0.5ML KIT DIRECTED SUBCUTANEOUS NOT-TAKING ALREX 0.2 % SUSPENSION 1 DROP INTO AFFECTED EYE OPHTHALMIC FOUR TIMES A DAY MEDICATION LIST REVIEWED AND RECONCILED WITH THE PATIENT PAST MEDICAL HISTORY "SACRAL INSTABILITY" PER DR. DONOVAN SINCE FALLIN ON BUTTOCKS DURING A ROLLERBLADING ACCIDENT DYSPEPSIA/GERD DJD STATUS POST L5/S1 LAMINECTOMY [address] BRODERICK 2000 MIGRAINE HEADACHES OVEWEIGHT ALLERGIC RHINITIS/CONJUNCTIVITIS RECURRENT SINUSITIS STATUS POST SINUS SURGERY X2 BY DR[address] 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 ALLERGIES PLAQUENIL: RASH: ALLERGY TAPE: RASH: ALLERGY ENVIRONMENTAL: ITCHING RASH: ALLERGY TEGADERM/OPSITE: BLISTERS, REDNESS, ITCHING: ALLERGY CIMZIA: SEVERE MUSCLE PAIN ARMS: SIDE EFFECTS SURGICAL HISTORY APPENDECTOMY 1985 [id number] HERNIA 06/25 ESOPHAGEAL MANOMETRY WITH NONSPECIFIC ESOPHAGEAL MOTOR DISORDER WITH LOW VELOCITY OF PROPAGATION AND HIGH CONTRACTION IN MIDESOPHAGUS 06/25 COLON RESECTION, CHOLECYSTECTOMY, REMOVAL RIGHT OVARIAN CYST 07/2012 CERVICAL FUSION C5-6 2014 LAMINECTOMY L5-S1 2001 REMOVAL RIGHT WRIST GANGLION CYST 2016 REMOVAL RIGHT WRIST GANGLION CYST 2003 SINUS SURGERY HOSPITALIZATION/MAJOR DIAGNOSTIC PROCEDURE SURGERIES REVIEW OF SYSTEMS REVIEWED BY: PROVIDER: TULIO CLARKE . CONSTITUTIONAL: ANY CHANGE IN YOUR MEDICAL CONDITION? NO . CHILLS NO . FEVER NO . INFECTION: DO YOU HAVE NEW INFECTIONS? NO . DO YOU HAVE HISTORY OF MRSA? NO . MUSCULOSKELETAL: ANY NEW PATTERNS OF PAIN OR NUMBNESS? NO, PT REPORTS TPI TO BILAT LOWER BACK, PT REPORTS PAIN IS RETURNING TO BASELINE . GASTROENTEROLOGY: ANY NEW CHANGE IN BOWEL CONTROL? NO . GENITOURINARY: ANY NEW CHANGE IN BLADDER CONTROL? NO . IS THERE A CHANCE YOU COULD BE ? NO . HEMATOLOGY/LYMPH: DO YOU TAKE ANY BLOOD THINNERS? (FOR EXAMPLE- COUMADIN, PLAVIX, AGGRENOX, PLATEL, PRADAXA, OR XARELTO) NO . WHEN WAS YOUR LAST DOSE? DATE: TIME: . NEUROLOGY: HAVE YOU FALLEN IN THE PAST 6 MONTHS? NO . ANY NEW EXTREMITY NUMBNESS OR WEAKNESS? NO . CARDIOLOGY: DO YOU HAVE A PACEMAKER OR DEFIBRILLATOR? NO . RESPIRATORY: HAVE YOU BEEN SICK IN THE PAST WEEK? NO . FEVER NO . FLU LIKE SYMPTOMS? NO . COUGH NO . INTEGUMENTARY: DO YOU HAVE ANY RASHES OR OPEN SORES? NO . ALLERGIC/IMMUNO: ARE YOU ALLERGIC TO SHELLFISH OR IV DYE? NO . ANY NEW ALLERGIES? NO . PSYCHIATRIC: DO YOU HAVE THOUGHTS OF HURTING YOURSELF OR SOMEONE ELSE? NO . ARE YOU ABUSED, NEGLECTED, OR IN AN UNSAFE ENVIRONMENT? NO . ENDOCRINOLOGY: ARE YOU DIABETIC? NO . OTHER: DO YOU NEED ANY PRESCRIPTIONS? NO . IF YES, PLEASE LIST: ____ . ANY NEW PROBLEMS WITH YOUR MEDICATIONS? NO . WHEN DID YOU LAST EAT? ____ . WHEN DID YOU LAST DRINK? ____ . WHAT DID YOU LAST DRINK? ____ . NAME OF PERSON DRIVING YOU HOME? ____ . DO YOU HAVE ANY OTHER QUESTIONS OR CONCERNS NO . VITAL SIGNS WT 160 LBS, HT 67 IN, BMI 25.06 INDEX, BP 106/60 MM HG, HR 83 /MIN, RR 16 /MIN, TEMP 99.0 F, OXYGEN SAT % 98%, SAFE IN ENV? (Y/N) Y, NA INITIALS OH 15:43, REVIEWED BY: DONTRELL. EXAMINATION GENERAL EXAMINATION: LUNGS:LUNG BACON ARE CLEAR TO AUSCULTATION BILATERALLY. GOOD MOVEMENT OF AIR. LUNGS:LUNG SOUNDS ARE CLEAR. HEART:S1, S2 IN A REGULAR RATE AND RHYTHM. NO SIGNIFICANT MURMURS, RUBS OR GALLOPS NOTED. HEART:HEART RATE REGULAR. MUSCULOSKELETAL:*, MUSCLE STRENGTH TESTING 5/5 BILATERAL, PALPATION: POSITIVE FOR PAIN OVER L/S SPINE. POSITIVE FOR PAIN OVER L/S PARASPINALS R>L.SPECIFIC POINT TENDERNESS OVER RIGHT L3/4-L4/5 FACET. DIAGNOSTIC: . GENERAL EXAMINATION: LUNGS:LUNG BACON ARE CLEAR TO AUSCULTATION BILATERALLY. GOOD MOVEMENT OF AIR. LUNGS:LUNG SOUNDS ARE CLEAR. HEART:S1, S2 IN A REGULAR RATE AND RHYTHM. NO SIGNIFICANT MURMURS, RUBS OR GALLOPS NOTED. HEART:HEART RATE REGULAR. MUSCULOSKELETAL:*, MUSCLE STRENGTH TESTING 5/5 BILATERAL, PALPATION: POSITIVE FOR PAIN OVER L/S SPINE. POSITIVE FOR PAIN OVER L/S PARASPINALS R>L.SPECIFIC POINT TENDERNESS OVER RIGHT L3/4-L4/5 FACET. DIAGNOSTIC: . ASSESSMENTS MYOFASCIAL PAIN - M79.1 (PRIMARY) POSTLAMINECTOMY SYNDROME, NOT ELSEWHERE CLASSIFIED - M96.1 (PRIMARY) INTERVERTEBRAL DISC DISORDERS WITH RADICULOPATHY, LUMBOSACRAL REGION - M51.17 TREATMENT MYOFASCIAL PAIN NOTES: RIGHT L3/4 TRANSFORAMINAL STEROID INJ. PROCEDURE CODES FA211 ESTABILISHED PATIENT [facility] CHARGE DISPOSITION & COMMUNICATION FOLLOW UP 2WK POST (REASON: RIGHT L3/4 TRANSFORAMINAL STEROID INJ.) ELECTRONICALLY SIGNED BY TRICIA LADD ON 12/02/2016 AT 08:41 AM EDT DISCLAIMER : THIS IS A VISIT SUMMARY EXTRACTED FROM THE [employer] CHART. IT IS NOT A COPY OF THE [employer] PROGRESS NOTE. JANETTE
== END ==
LOC: M PAIN 15:00
PROVIDERS: ATTEND Nurse Practitioner Family
DX: M79.1 Myalgia (principal); M96.1 Postlaminectomy syndrome, not elsewhere classified; M54.16 Radiculopathy, lumbar region; M47.816 Spondylosis without myelopathy or radiculopathy, lumbar region; M47.817 Spondylosis without myelopathy or radiculopathy, lumbosacral region; G89.29 Other chronic pain; Z79.899 Other long term (current) drug therapy; Z88.8 Allergy status to other drugs, medicaments and biological substances; J30.9 Allergic rhinitis, unspecified; Z91.048 Other nonmedicinal substance allergy status

== ENCOUNTER → 2016-12-01 | Outpatient (CLI) | payer BC ==
[~2016-12-01] MED LIST changes: +BUPIVACAINE HCL 0.25% 30 ML VIAL As Ordered ONE; +ISOVUE-M 300 61% 15ML VIAL (Q9967) As Ordered ONE; +LIDOCAINE 1% SDV INJ 30 ML VIAL As Ordered ONE; +dexameTHASONE 10 MG/1 ML VIAL PRES.FREE (J1100) As Ordered ONE; +diazePAM 5 MG TAB As Ordered ONE; +oxyCODONE 5MG TAB As Ordered ONE
--- NOTE | 2016-12-01 12:31 | REP ---
Partial lumbar spine series: 88 views . History: Injection procedure for pain. 43 seconds of fluoroscopy time is reported. Findings: A sequence of 88 fluoroscopically obtained last image hold procedural spot radiographs of the lumbar spine document needle position and contrast injection associated with injection procedure. Signed by Travis Diego MD 12/01/2016 12:23 P
--- NOTE | 2016-12-05 23:51 | ECWPNPC ---
PATIENT NAME: DUANE TENORIO : 1965 GENDER: FEMALE VISIT DATE: 12/01/2016 DISCHARGE DATE: 12/01/16 1158 VISIT LOCKED DATE TIME: PHYSICIAN: DANICA JOHNSON PHYSICIAN PAGER NO: [phone] RESOURCE: DANICA JOHNSON REASON FOR APPOINTMENT 1. RIGHT L4/5 TRANSFORAMINAL STEROID INJ. HISTORY OF PRESENT ILLNESS HISTORY OF PRESENT ILLNESS: PAIN THE PATIENT DESCRIBES THE PAIN... FALL RISK SCREENING: SCREENING :NO FALLS IN THE PAST YEAR CURRENT MEDICATIONS TAKING IMITREX 100 MG TABLET DIRECTED ORALLY , NOTES: 11-16-16 TAKING AMITIZA 24 MCG CAPSULE 1 CAPSULE WITH FOOD ORALLY ONCE A DAY, NOTES: 11-30-162099 TAKING NEXIUM 40 MG CAPSULE DELAYED RELEASE 1 CAPSULE ORALLY ONCE A DAY, NOTES: 12-01-16599 TAKING SINGULAIR 10 MG TABLET 1 TABLET IN THE EVENING ORALLY ONCE A DAY, NOTES: 11-30-162099 TAKING LEVOCETIRIZINE DIHYDROCHLORIDE 5 MG TABLET 1 TABLET IN THE EVENING ORALLY ONCE A DAY, NOTES: 11-30-162099 TAKING DULOXETINE HCL 30 MG CAPSULE DELAYED RELEASE PARTICLES 1 CAPSULE ORALLY ONCE A DAY, NOTES: 12-01-16499 TAKING DYMISTA 137-50 MCG/ACT SUSPENSION 1 SPRAY IN EACH NOSTRIL NASALLY TWICE A DAY, NOTES: 12-01-16599 TAKING PATADAY 0.2 % SOLUTION 1 DROP OPHTHALMIC DAILY, NOTES: 12-01-16599 TAKING CULTURELLE DIGESTIVE HEALTH - CAPSULE ORALLY DAILY, NOTES: 12-01-16599 TAKING XANAX 0.25 MG TABLET 1 TABLET ORALLY DAILY NEEDED., NOTES: 11-16-16599 TAKING ENBREL 50 MG/ML SOLUTION 1 ML SUBCUTANEOUS WEEKLY/ SAT, NOTES: 11-13-16 TAKING MAGNESIUM 400 MG CAPSULE ORALLY DAILY AT HS, NOTES: 11-30-162099 TAKING TURMERIC 500 MG CAPSULE ORALLY DAILY AT BEDTIME, NOTES: 11-30-162099 TAKING HYDROCODONE-ACETAMINOPHEN 5-325 MG TABLET 1 TABLET NEEDED ORALLY EVERY 6 HRS PRN FOR PAIN MDD2, NOTES: 11-29 NOT-TAKING CIMZIA 2 X 200 MG KIT SUBCUTANEOUS 1 INJECTION OF 200 MG EVERY 2 WEEK NOT-TAKING METHOCARBAMOL 500 MG TABLET 10 ML NEEDED ORALLY EVERY 8 HRS PT TAKES 1/2 NOT-TAKING ULTRACET 37.5-325 MG TABLET 1 TABLETS NEEDED ORALLY EVERY 6 HRS FOR PAIN MDD4 NOT-TAKING SOMA 350 MG TABLET 1 TABLET NEEDED ORALLY BEFORE BEDTIME FOR SPASMS AND PAIN, NOTES: OVER A MONTH NOT-TAKING HUMIRA PEN 40 MG/0.8ML KIT 0.8 ML SUBCUTANEOUS EVERY TWO WEEKS, NOTES: 2 WEEKS NOT-TAKING IMITREX STATDOSE SYSTEM 4 MG/0.5ML KIT DIRECTED SUBCUTANEOUS NOT-TAKING ALREX 0.2 % SUSPENSION 1 DROP INTO AFFECTED EYE OPHTHALMIC FOUR TIMES A DAY MEDICATION LIST REVIEWED AND RECONCILED WITH THE PATIENT PAST MEDICAL HISTORY "SACRAL INSTABILITY" PER DR. DONOVAN SINCE FALLIN ON BUTTOCKS DURING A ROLLERBLADING ACCIDENT DYSPEPSIA/GERD DJD STATUS POST L5/S1 LAM[address]CTOM[address] BRODERICK 2000 MIGRAINE HEADACHES OVEWEIGHT ALLERGIC RHINITIS/CONJUNCTIVITIS RECURRENT SINUSITIS STATUS POST SINUS SURGERY X2 BY DR[address] 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 ALLERGIES PLAQUENIL: RASH: ALLERGY TAPE: RASH: ALLERGY ENVIRONMENTAL: ITCHING RASH: ALLERGY TEGADERM/OPSITE: BLISTERS, REDNESS, ITCHING: ALLERGY CIMZIA: SEVERE MUSCLE PAIN ARMS: SIDE EFFECTS REVIEW OF SYSTEMS REVIEWED BY: PROVIDER: . CONSTITUTIONAL: ANY CHANGE IN YOUR MEDICAL CONDITION? NO . CHILLS NO . FEVER NO . INFECTION: DO YOU HAVE NEW INFECTIONS? NO . DO YOU HAVE HISTORY OF MRSA? NO . MUSCULOSKELETAL: ANY NEW PATTERNS OF PAIN OR NUMBNESS? NO . GASTROENTEROLOGY: ANY NEW CHANGE IN BOWEL CONTROL? NO . GENITOURINARY: ANY NEW CHANGE IN BLADDER CONTROL? NO . IS THERE A CHANCE YOU COULD BE ? NO . HEMATOLOGY/LYMPH: DO YOU TAKE ANY BLOOD THINNERS? (FOR EXAMPLE- COUMADIN, PLAVIX, AGGRENOX, PLATEL, PRADAXA, OR XARELTO) NO . WHEN WAS YOUR LAST DOSE? DATE: TIME: . NEUROLOGY: HAVE YOU FALLEN IN THE PAST 6 MONTHS? NO . ANY NEW EXTREMITY NUMBNESS OR WEAKNESS? NO . CARDIOLOGY: DO YOU HAVE A PACEMAKER OR DEFIBRILLATOR? NO . RESPIRATORY: HAVE YOU BEEN SICK IN THE PAST WEEK? NO . FEVER NO . FLU LIKE SYMPTOMS? NO . COUGH NO . INTEGUMENTARY: DO YOU HAVE ANY RASHES OR OPEN SORES? NO . ALLERGIC/IMMUNO: ARE YOU ALLERGIC TO SHELLFISH OR IV DYE? NO . ANY NEW ALLERGIES? NO . PSYCHIATRIC: DO YOU HAVE THOUGHTS OF HURTING YOURSELF OR SOMEONE ELSE? NO . ARE YOU ABUSED, NEGLECTED, OR IN AN UNSAFE ENVIRONMENT? NO . ENDOCRINOLOGY: ARE YOU DIABETIC? NO . OTHER: DO YOU NEED ANY PRESCRIPTIONS? NO . IF YES, PLEASE LIST: ____ . ANY NEW PROBLEMS WITH YOUR MEDICATIONS? NO . WHEN DID YOU LAST EAT? ____LAST NIGHT 5:30 PM . WHEN DID YOU LAST DRINK? ____4 HOURS AGO . WHAT DID YOU LAST DRINK? ____WATER . NAME OF PERSON DRIVING YOU HOME? ____DANA KOWALSKI . DO YOU HAVE ANY OTHER QUESTIONS OR CONCERNS NO . VITAL SIGNS WT 160 LBS, HT 67 IN, BMI 25.06 INDEX, BP 141/62 MM HG, HR 64 /MIN, RR 16 /MIN, TEMP 98.3 F, OXYGEN SAT % 99%, NA INITIALS AW 1018, REVIEWED BY: KG. ASSESSMENTS INTERVERTEBRAL DISC DISORDERS WITH RADICULOPATHY, LUMBAR REGION - M51.16 (PRIMARY) PROCEDURES PN LUMBAR TRANSFORAMINAL BLOCKS PRE PROCEDURE DIAGNOSIS LUMBAR POST LAMINECTOMY PAIN SYNDROME POST PROCEDURE DIAGNOSIS LUMBAR POST LAMINECTOMY PAIN SYNDROME PROCEDURE RIGHT L4 AND RIGHT L5 TRANSFORAMINAL EPIDURAL STEROID INJECTION UNDER FLUOROSCOPIC GUIDANCE SURGEON DR DANICA JOHNSON FINISHER HOT STRIP NONE ANESTHESIA LOCAL PRE PROCEDURE NOTE PATIENT WITH HISTORY OF CHRONIC LOW BACK PAIN. I EVALUATE THE PATIENT AND REVIEWED THE CHART. I WENT OVER THE RISKS, ALTERNATIVES, AND BENEFITS ASSOCIATED WITH THIS PROCEDURE. THE PATIENT WOULD LIKE TO PROCEED AND GIVE CONSENT TO PERFORMED THE PROCEDURE. THE PATIENT DENIES UNEXPLAINABLE WEIGHT LOSS, FEVER, CHILLS, OR CHANGES IN URINARY OR BOWEL CONTROL DESCRIPTION OF PROCEDURE THE PATIENT WAS BROUGHT TO THE PROCEDURE ROOM AND PLACED IN THE PRONE POSITION. THE LUMBOSACRAL AREA WAS CLEANED WITH BETADINE SOLUTION AND DRAPED ASEPTICALLY. THE PROCEDURE WAS DONE UNDER STERILE CONDITIONS. I CHECKED LATERALITY AND THE LEVEL WHERE THE PROCEDURE WAS GOING TO BE PERFORMED WITH THE PATIENT AND THE SUPPORTING STAFF AT THE MOMENT OF THE TIME OUT IN THE PROCEDURE ROOM. UNDER FLUOROSCOPIC GUIDANCE, TARGETS WERE SELECTED AT THE RIGHT TRANSFORAMINAL OPENING OF L4 AND TARGETS WERE SELECTED AT THE RIGHT TRANSFORAMINAL OPENING OF L5. TARGET POINT WAS SELECTED AFTER LATERAL ROTATION AND TILT OF THE MAGNIFIER OF THE C-ARM. LIDOCAINE 0.5% WAS USED TO NUMB THE SKIN AND THE SUBCUTANEOUS TISSUE BELOW IT. AN EPIMED INTRODUCER 18-GAUGE WAS ADVANCED UNTIL WE WENT CLOSE TO THE SELECTED TRANSFORAMINAL OPENINGS. AFTER PROPER POSITION OF THE NEEDLES WAS ACHIEVED, A 22-GAUGE EPIMED NEEDLE WAS PLACED INSIDE OF THE INTRODUCER AND ADVANCED TO THE TRANSFORAMINAL OPENING OF THE SELECTED SITES. WHEN PROPER POSITION OF THE NEEDLE WAS ACHIEVED, ISOVUE M DYE 30%, 0.25 ML, WAS INJECTED SHOWING ADEQUATE SPREAD OF THE DYE. THIS WAS DONE UNDER DIGITAL SUBTRACTION AND ANGIOGRAPHY. THERE WAS NO VASCULAR UPDATE. THEN, A SOLUTION OF 2 ML OF BUPIVACAINE 0.25% AND DEXAMETHASONE 10 MG WAS INJECTED AT EACH SITE. THERE WAS NO EVIDENCE OF BLOOD, PARESTHESIA OR CEREBROSPINAL FLUID DURING THE PROCEDURE. THE PATIENT WAS SENT TO THE RECOVERY ROOM. THE PATIENT WAS MOVING THE EXTREMITIES AND DOING WELL. THERE WAS NO COMPLICATION DURING THE PROCEDURE. FLUOROSCOPY TIME WAS 43 SECONDS POST PROCEDURE NOTE THE PROCEDURE DONE WAS DISCUSSED WITH THE PATIENT. THE PATIENT WILL BE SEEN IN A FOLLOW UP IN THE NEXT FEW WEEKS. INSTRUCTIONS WERE GIVEN, QUESTIONS WERE ANSWERED, AND THE PATIENT EXPRESSED UNDERSTANDING AND AGREES WITH THE PLAN I OLE MOORE DOCUMENTED THE ABOVE INFORMATION ACTING A ELECTRICAL DESIGN TECHNOLOGIST FOR DR. JOHNSON. I HAVE REVIEWED THE ABOVE DOCUMENT WRITTEN BY OLE STEELE AND I VERIFY THAT IT IS ACCURATE. DIAGNOSTIC IMAGING [facility] FLUORO GUIDE SPINE INJECTION (PAIN)[id number] PROCEDURE CODES 62667 INJ FORAMEN EPIDURAL L/S 38956 INJ FORAMEN EPIDURAL ADD-ON 6045F RADXPS IN END [id number] PXD DISPOSITION & COMMUNICATION FOLLOW UP 3 WEEKS ELECTRONICALLY SIGNED BY DANICA JOHNSON MD ON 12/05/2016 AT 12:51 PM EDT DISCLAIMER : THIS IS A VISIT SUMMARY EXTRACTED FROM THE [employer] CHART. IT IS NOT A COPY OF THE [employer] PROGRESS NOTE. MTDD
== END ==
LOC: M PAIN 10:15
PROVIDERS: ATTEND Anesthesiology
DX: G89.29 Other chronic pain (principal); M51.16 Intervertebral disc disorders with radiculopathy, lumbar region; K21.9 Gastro-esophageal reflux disease without esophagitis; G43.909 Migraine, unspecified, not intractable, without status migrainosus; E66.3 Overweight; J30.9 Allergic rhinitis, unspecified; H10.45 Other chronic allergic conjunctivitis; E55.9 Vitamin D deficiency, unspecified; M32.9 Systemic lupus erythematosus, unspecified; M06.9 Rheumatoid arthritis, unspecified; J32.9 Chronic sinusitis, unspecified; R10.13 Epigastric pain; M53.2X8 Spinal instabilities, sacral and sacrococcygeal region; Z88.8 Allergy status to other drugs, medicaments and biological substances; Z91.048 Other nonmedicinal substance allergy status; Z79.891 Long term (current) use of opiate analgesic; Z79.899 Other long term (current) drug therapy; Z68.25 Body mass index [BMI] 25.0-25.9, adult
CPT/HCPCS: 64483; 64484; J1100; Q9967

== ENCOUNTER → 2016-12-29 | Outpatient (CLI) | payer BC ==
[~2016-12-29] MED LIST changes: -BUPIVACAINE HCL 0.25% 30 ML VIAL As Ordered ONE; -ISOVUE-M 300 61% 15ML VIAL (Q9967) As Ordered ONE; -LIDOCAINE 1% SDV INJ 30 ML VIAL As Ordered ONE; -dexameTHASONE 10 MG/1 ML VIAL PRES.FREE (J1100) As Ordered ONE; -diazePAM 5 MG TAB As Ordered ONE; -oxyCODONE 5MG TAB As Ordered ONE
--- NOTE | 2016-12-30 00:22 | ECWPNPC ---
PATIENT NAME: DUANE TENORIO : 1965 GENDER: FEMALE VISIT DATE: 12/29/2016 DISCHARGE DATE: 12/29/16 1535 VISIT LOCKED DATE TIME: PHYSICIAN: TULIO SOLIS PHYSICIAN PAGER NO: [phone] RESOURCE: TULIO SOLIS REASON FOR APPOINTMENT 1. POST TRANFORAMINAL HISTORY OF PRESENT ILLNESS HISTORY OF PRESENT ILLNESS: HERE FOR POST PROCEDURE F/U.HAD TPI LOW BACK ON 10-06-16.REPORTED NO SIGNIFICANT IMPROVEMENT.HAD RIGHT L4/5 TRANSFORAMINAL ON 12-01-16 AND REPORTS 100% IMPROVEMENT IN PAIN THAT CONTINUES TODAY.RATING PAIN VAS 1/10.CURRENTLY ON ENBREL THAT SHE TAKES ONCE PER WEEK.SHE IS AWARE ON STOPPING THIS 1 WEEK BEFORE INJECTION AND DOESNT RESTART UNTIL 2WK POST INJECTION. PAIN THE PATIENT DESCRIBES THE PAIN... THE PATIENT DESCRIBES THE PAIN... FALL RISK SCREENING: SCREENING :NO FALLS IN THE PAST YEAR CURRENT MEDICATIONS TAKING IMITREX 100 MG TABLET DIRECTED ORALLY TAKING AMITIZA 24 MCG CAPSULE 1 CAPSULE WITH FOOD ORALLY ONCE A DAY TAKING NEXIUM 40 MG CAPSULE DELAYED RELEASE 1 CAPSULE ORALLY ONCE A DAY TAKING SINGULAIR 10 MG TABLET 1 TABLET IN THE EVENING ORALLY ONCE A DAY TAKING LEVOCETIRIZINE DIHYDROCHLORIDE 5 MG TABLET 1 TABLET IN THE EVENING ORALLY ONCE A DAY TAKING DULOXETINE HCL 30 MG CAPSULE DELAYED RELEASE PARTICLES 1 CAPSULE ORALLY ONCE A DAY TAKING DYMISTA 137-50 MCG/ACT SUSPENSION 1 SPRAY IN EACH NOSTRIL NASALLY TWICE A DAY TAKING PATADAY 0.2 % SOLUTION 1 DROP OPHTHALMIC DAILY [facility] - CAPSULE ORALLY DAILY TAKING XANAX 0.25 MG TABLET 1 TABLET ORALLY DAILY NEEDED. TAKING MAGNESIUM 400 MG CAPSULE ORALLY DAILY AT HS TAKING TURMERIC 500 MG CAPSULE ORALLY DAILY AT BEDTIME NOT-TAKING ENBREL 50 MG/ML SOLUTION 1 ML SUBCUTANEOUS WEEKLY/ SAT NOT-TAKING HYDROCODONE-ACETAMINOPHEN 5-325 MG TABLET 1 TABLET NEEDED ORALLY EVERY 6 HRS PRN FOR PAIN MDD2 NOT-TAKING CIMZIA 2 X 200 MG KIT SUBCUTANEOUS 1 INJECTION OF 200 MG EVERY 2 WEEK NOT-TAKING METHOCARBAMOL 500 MG TABLET 10 ML NEEDED ORALLY EVERY 8 HRS PT TAKES 1/2 NOT-TAKING ULTRACET 37.5-325 MG TABLET 1 TABLETS NEEDED ORALLY EVERY 6 HRS FOR PAIN MDD4 NOT-TAKING SOMA 350 MG TABLET 1 TABLET NEEDED ORALLY BEFORE BEDTIME FOR SPASMS AND PAIN, NOTES: OVER A MONTH NOT-TAKING HUMIRA PEN 40 MG/0.8ML KIT 0.8 ML SUBCUTANEOUS EVERY TWO WEEKS, NOTES: 2 WEEKS NOT-TAKING IMITREX STATDOSE SYSTEM 4 MG/0.5ML KIT DIRECTED SUBCUTANEOUS NOT-TAKING ALREX 0.2 % SUSPENSION 1 DROP INTO AFFECTED EYE OPHTHALMIC FOUR TIMES A DAY MEDICATION LIST REVIEWED AND RECONCILED WITH THE PATIENT PAST MEDICAL HISTORY "SACRAL INSTABILITY" PER DR. DONOVAN SINCE FALLIN ON BUTTOCKS DURING A ROLLERBLADING ACCIDENT DYSPEPSIA/GERD DJD STATUS POST L5/S1 LAMINECTOM[address] BRODERICK 2000 MIGRAINE HEADACHES OVEWEIGHT ALLERGIC RHINITIS/CONJUNCTIVITIS RECURRENT SINUSITIS STATUS POST SINUS SURGERY X2 BY DR[address] 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 ALLERGIES PLAQUENIL: RASH: ALLERGY TAPE: RASH: ALLERGY ENVIRONMENTAL: ITCHING RASH: ALLERGY TEGADERM/OPSITE: BLISTERS, REDNESS, ITCHING: ALLERGY CIMZIA: SEVERE MUSCLE PAIN ARMS: SIDE EFFECTS SURGICAL HISTORY APPENDECTOMY 1985 [id number] HERNIA 06/25 ESOPHAGEAL MANOMETRY WITH NONSPECIFIC ESOPHAGEAL MOTOR DISORDER WITH LOW VELOCITY OF PROPAGATION AND HIGH CONTRACTION IN MIDESOPHAGUS 06/25 COLON RESECTION, CHOLECYSTECTOMY, REMOVAL RIGHT OVARIAN CYST 07/2012 CERVICAL FUSION C5-6 2014 LAMINECTOMY L5-S1 2002 REMOVAL RIGHT WRIST GANGLION CYST 2016 REMOVAL RIGHT WRIST GANGLION CYST 2003 SINUS SURGERY HOSPITALIZATION/MAJOR DIAGNOSTIC PROCEDURE SURGERIES REVIEW OF SYSTEMS REVIEWED BY: PROVIDER: TULIO CLARKE . CONSTITUTIONAL: ANY CHANGE IN YOUR MEDICAL CONDITION? NO . CHILLS NO . FEVER NO . INFECTION: DO YOU HAVE NEW INFECTIONS? YES, PT REPORTS SINUSITIS TX'D WITH AUGMENTIN WITH RELIEF. PT STATES SHE JUST FINISHED AUGMENTIN YESTERDAY&NBSP;. DO YOU HAVE HISTORY OF MRSA? &NBSP;&NBSP; NO&NBSP;. MUSCULOSKELETAL: ANY NEW PATTERNS OF PAIN OR NUMBNESS? NO . GASTROENTEROLOGY: ANY NEW CHANGE IN BOWEL CONTROL? NO . GENITOURINARY: ANY NEW CHANGE IN BLADDER CONTROL? NO . IS THERE A CHANCE YOU COULD BE ? NO . HEMATOLOGY/LYMPH: DO YOU TAKE ANY BLOOD THINNERS? (FOR EXAMPLE- COUMADIN, PLAVIX, AGGRENOX, PLATEL, PRADAXA, OR XARELTO) NO . WHEN WAS YOUR LAST DOSE? DATE: TIME: . NEUROLOGY: HAVE YOU FALLEN IN THE PAST 6 MONTHS? NO . ANY NEW EXTREMITY NUMBNESS OR WEAKNESS? NO . CARDIOLOGY: DO YOU HAVE A PACEMAKER OR DEFIBRILLATOR? NO . RESPIRATORY: HAVE YOU BEEN SICK IN THE PAST WEEK? NO . FEVER NO . FLU LIKE SYMPTOMS? NO . COUGH NO . INTEGUMENTARY: DO YOU HAVE ANY RASHES OR OPEN SORES? NO . ALLERGIC/IMMUNO: ARE YOU ALLERGIC TO SHELLFISH OR IV DYE? NO . ANY NEW ALLERGIES? NO . PSYCHIATRIC: DO YOU HAVE THOUGHTS OF HURTING YOURSELF OR SOMEONE ELSE? NO . ARE YOU ABUSED, NEGLECTED, OR IN AN UNSAFE ENVIRONMENT? NO . ENDOCRINOLOGY: ARE YOU DIABETIC? NO . OTHER: DO YOU NEED ANY PRESCRIPTIONS? NO . IF YES, PLEASE LIST: ____ . ANY NEW PROBLEMS WITH YOUR MEDICATIONS? NO . WHEN DID YOU LAST EAT? ____ . WHEN DID YOU LAST DRINK? ____ . WHAT DID YOU LAST DRINK? ____ . NAME OF PERSON DRIVING YOU HOME? ____ . DO YOU HAVE ANY OTHER QUESTIONS OR CONCERNS NO . VITAL SIGNS WT 160 LBS, HT 67 IN, BMI 25.06 INDEX, BP 118/63 MM HG, HR 82 /MIN, RR 16 /MIN, TEMP 97.0 F, OXYGEN SAT % 96%, NA INITIALS AW 1619, REVIEWED BY: EM. EXAMINATION GENERAL EXAMINATION: LUNGS:LUNG SOUNDS ARE CLEAR. LUNGS:LUNG BACON ARE CLEAR TO AUSCULTATION BILATERALLY. GOOD MOVEMENT OF AIR. HEART:HEART RATE REGULAR. HEART:S1, S2 IN A REGULAR RATE AND RHYTHM. NO SIGNIFICANT MURMURS, RUBS OR GALLOPS NOTED. DIAGNOSTIC: . GENERAL EXAMINATION: LUNGS:LUNG SOUNDS ARE CLEAR. LUNGS:LUNG BACON ARE CLEAR TO AUSCULTATION BILATERALLY. GOOD MOVEMENT OF AIR. HEART:HEART RATE REGULAR. HEART:S1, S2 IN A REGULAR RATE AND RHYTHM. NO SIGNIFICANT MURMURS, RUBS OR GALLOPS NOTED. DIAGNOSTIC: . ASSESSMENTS MYOFASCIAL PAIN - M79.1 (PRIMARY) POSTLAMINECTOMY SYNDROME, NOT ELSEWHERE CLASSIFIED - M96.1 (PRIMARY) INTERVERTEBRAL DISC DISORDERS WITH RADICULOPATHY, LUMBOSACRAL REGION - M51.17 TREATMENT MYOFASCIAL PAIN NOTES: CONTINUE CONSERVATIVE CARE. DISPOSITION & COMMUNICATION FOLLOW UP 3 MONTHS ELECTRONICALLY SIGNED BY TRICIA LADD ON 12/29/2016 AT 04:18 PM EDT DISCLAIMER : THIS IS A VISIT SUMMARY EXTRACTED FROM THE [facility] CHART. IT IS NOT A COPY OF THE [employer] PROGRESS NOTE. JANETTE
== END ==
LOC: M PAIN 15:15
PROVIDERS: ATTEND Nurse Practitioner Family
DX: G89.29 Other chronic pain (principal); M79.1 Myalgia; M96.1 Postlaminectomy syndrome, not elsewhere classified; M51.17 Intervertebral disc disorders with radiculopathy, lumbosacral region; K21.9 Gastro-esophageal reflux disease without esophagitis; M51.36 Other intervertebral disc degeneration, lumbar region; G43.909 Migraine, unspecified, not intractable, without status migrainosus; E66.3 Overweight; J30.9 Allergic rhinitis, unspecified; H10.45 Other chronic allergic conjunctivitis; E55.9 Vitamin D deficiency, unspecified; M32.9 Systemic lupus erythematosus, unspecified; M06.9 Rheumatoid arthritis, unspecified; J32.9 Chronic sinusitis, unspecified; Z88.8 Allergy status to other drugs, medicaments and biological substances; Z91.048 Other nonmedicinal substance allergy status; Z79.899 Other long term (current) drug therapy

== ENCOUNTER → 2017-03-03 | Outpatient (CLI) | payer BC ==
--- NOTE | 2017-03-25 00:56 | ECWPNPC ---
PATIENT NAME: DUANE TENORIO : 1965 GENDER: FEMALE VISIT DATE: 03/03/2017 DISCHARGE DATE: 03/03/17 1633 VISIT LOCKED DATE TIME: PHYSICIAN: TULIO SOLIS PHYSICIAN PAGER NO: [phone] RESOURCE: TULIO SOLIS HISTORY OF PRESENT ILLNESS HISTORY OF PRESENT ILLNESS: HERE ON AN URGENT BASIS FOR SEVERE FLARE UP OF LOW BACK PAIN THAT BEGAN ONE MONTH AGO.RATING PAIN INTENSE 8/10 VAS.AT END OF DAY PAIN IS EXCRUCIATING AND UNABLE TO GET COMFORTABLE.THIS IS BAD SHE HAS EVER EXPERIENCED.DENIES PRECIPITATING EVENT.PAIN IS DIFFERENT IN THE FACT THAT IT IS ONLY LEFT LOW BACK AND IT IS USUALLY RIGHT SIDE.HAVING INTERMITTENT ACHING PAIN BILATERAL CALVES AND INNER ASPECT OF FEET BILATERALLY.HISTORY OF LAMINECTOMY IN 2000.MRI L/S SPINE DONE 01-09-16 IS REVIEWED. PAIN THE PATIENT DESCRIBES THE PAIN... FALL RISK SCREENING: SCREENING :NO FALLS IN THE PAST YEAR CURRENT MEDICATIONS TAKING IMITREX 100 MG TABLET DIRECTED ORALLY TAKING AMITIZA 24 MCG CAPSULE 1 CAPSULE WITH FOOD ORALLY ONCE A DAY TAKING NEXIUM 40 MG CAPSULE DELAYED RELEASE 1 CAPSULE ORALLY ONCE A DAY TAKING SINGULAIR 10 MG TABLET 1 TABLET IN THE EVENING ORALLY ONCE A DAY TAKING LEVOCETIRIZINE DIHYDROCHLORIDE 5 MG TABLET 1 TABLET IN THE EVENING ORALLY ONCE A DAY TAKING DULOXETINE HCL 30 MG CAPSULE DELAYED RELEASE PARTICLES 1 CAPSULE ORALLY ONCE A DAY TAKING DYMISTA 137-50 MCG/ACT SUSPENSION 1 SPRAY IN EACH NOSTRIL NASALLY TWICE A DAY TAKING PATADAY 0.2 % SOLUTION 1 DROP OPHTHALMIC DAILY TAKING CULTUREE DIGESTIVE HEALTH - CAPSULE ORALLY DAILY TAKING XANAX 0.25 MG TABLET 1 TABLET ORALLY DAILY NEEDED. TAKING MAGNESIUM 400 MG CAPSULE ORALLY DAILY AT HS TAKING TURMERIC 500 MG CAPSULE ORALLY DAILY AT BEDTIME TAKING ORENCIA 125 MG/ML SOLUTION PREFILLED SYRINGE SUBCUTANEOUS WEEKLY NOT-TAKING ENBREL 50 MG/ML SOLUTION 1 ML SUBCUTANEOUS WEEKLY/ SAT NOT-TAKING HYDROCODONE-ACETAMINOPHEN 5-325 MG TABLET 1 TABLET NEEDED ORALLY EVERY 6 HRS PRN FOR PAIN MDD2 NOT-TAKING CIMZIA 2 X 200 MG KIT SUBCUTANEOUS 1 INJECTION OF 200 MG EVERY 2 WEEK NOT-TAKING METHOCARBAMOL 500 MG TABLET 10 ML NEEDED ORALLY EVERY 8 HRS PT TAKES 1/2 NOT-TAKING ULTRACET 37.5-325 MG TABLET 1 TABLETS NEEDED ORALLY EVERY 6 HRS FOR PAIN MDD4 NOT-TAKING SOMA 350 MG TABLET 1 TABLET NEEDED ORALLY BEFORE BEDTIME FOR SPASMS AND PAIN, NOTES: OVER A MONTH NOT-TAKING HUMIRA PEN 40 MG/0.8ML KIT 0.8 ML SUBCUTANEOUS EVERY TWO WEEKS, NOTES: 2 WEEKS NOT-TAKING IMITREX STATDOSE SYSTEM 4 MG/0.5ML KIT DIRECTED SUBCUTANEOUS NOT-TAKING ALREX 0.2 % SUSPENSION 1 DROP INTO AFFECTED EYE OPHTHALMIC FOUR TIMES A DAY MEDICATION LIST REVIEWED AND RECONCILED WITH THE PATIENT PAST MEDICAL HISTORY "SACRAL INSTABILITY" PER DR. DONOVAN SINCE FALLIN ON BUTTOCKS DURING A ROLLERBLADING ACCIDENT DYSPEPSIA/GERD DJD STATUS POST L5/S[address] LAM[address] BRODERICK 2000 MIGRAINE HEADACHES OVEWEIGHT ALLERGIC RHINITIS/CONJUNCTIVITIS RECURRENT SINUSITIS STATUS POST SINUS SURGERY X2 BY DR[address] 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 ALLERGIES PLAQUENIL: RASH: ALLERGY TAPE: RASH: ALLERGY ENVIRONMENTAL: ITCHING RASH: ALLERGY TEGADERM/OPSITE: BLISTERS, REDNESS, ITCHING: ALLERGY CIMZIA: SEVERE MUSCLE PAIN ARMS: SIDE EFFECTS SURGICAL HISTORY APPENDECTOMY 1985 [id number] HERNIA 06/25 ESOPHAGEAL MANOMETRY WITH NONSPECIFIC ESOPHAGEAL MOTOR DISORDER WITH LOW VELOCITY OF PROPAGATION AND HIGH CONTRACTION IN MIDESOPHAGUS 06/25 COLON RESECTION, CHOLECYSTECTOMY, REMOVAL RIGHT OVARIAN CYST 07/2012 CERVICAL FUSION C5-6 2014 LAMINECTOMY L5-S1 2002 REMOVAL RIGHT WRIST GANGLION CYST 2016 REMOVAL RIGHT WRIST GANGLION CYST 2003 SINUS SURGERY SOCIAL HISTORY GENERAL: TOBACCO USE ARE YOU A:NONSMOKER ANABAPTISM [id number] [facility] [facility] LANGUAGE LANGUAGES SPOKEN:TAIWANESE LEARNING BARRIERS / SPECIAL NEEDS ORIENTED TO PLAN OF CARE: PATIENT, PAIN MANAGEMENT PATIENT, ORIENTED TO PLAN OF CARE: PATIENT, PAIN MANAGEMENT PATIENT. 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 ALAYNA SOUSA HOSPITALIZATION/MAJOR DIAGNOSTIC PROCEDURE SURGERIES REVIEW OF SYSTEMS REVIEWED BY: PROVIDER: TULIO CLARKE . CONSTITUTIONAL: ANY CHANGE IN YOUR MEDICAL CONDITION? NO . CHILLS NO . FEVER NO . INFECTION: DO YOU HAVE NEW INFECTIONS? NO . DO YOU HAVE HISTORY OF MRSA? NO . MUSCULOSKELETAL: ANY NEW PATTERNS OF PAIN OR NUMBNESS? YES, PAIN HAS CHANGED FROM PRIMARILY FROM THE RIGHT SIDE TO BILAT AND BILAT LEGS . GASTROENTEROLOGY: ANY NEW CHANGE IN BOWEL CONTROL? NO . GENITOURINARY: ANY NEW CHANGE IN BLADDER CONTROL? NO . IS THERE A CHANCE YOU COULD BE ? NO . HEMATOLOGY/LYMPH: DO YOU TAKE ANY BLOOD THINNERS? (FOR EXAMPLE- COUMADIN, PLAVIX, AGGRENOX, PLATEL, PRADAXA, OR XARELTO) NO . WHEN WAS YOUR LAST DOSE? DATE: TIME: . NEUROLOGY: HAVE YOU FALLEN IN THE PAST 6 MONTHS? NO . ANY NEW EXTREMITY NUMBNESS OR WEAKNESS? NO . CARDIOLOGY: DO YOU HAVE A PACEMAKER OR DEFIBRILLATOR? NO . RESPIRATORY: HAVE YOU BEEN SICK IN THE PAST WEEK? NO . FEVER NO . FLU LIKE SYMPTOMS? NO . COUGH NO . INTEGUMENTARY: DO YOU HAVE ANY RASHES OR OPEN SORES? NO . ALLERGIC/IMMUNO: ARE YOU ALLERGIC TO SHELLFISH OR IV DYE? NO . ANY NEW ALLERGIES? NO . PSYCHIATRIC: DO YOU HAVE THOUGHTS OF HURTING YOURSELF OR SOMEONE ELSE? NO . ARE YOU ABUSED, NEGLECTED, OR IN AN UNSAFE ENVIRONMENT? NO . ENDOCRINOLOGY: ARE YOU DIABETIC? NO . OTHER: DO YOU NEED ANY PRESCRIPTIONS? NO . IF YES, PLEASE LIST: ____ . ANY NEW PROBLEMS WITH YOUR MEDICATIONS? NO . WHEN DID YOU LAST EAT? ____ . WHEN DID YOU LAST DRINK? ____ . WHAT DID YOU LAST DRINK? ____ . NAME OF PERSON DRIVING YOU HOME? ____ . DO YOU HAVE ANY OTHER QUESTIONS OR CONCERNS NO . VITAL SIGNS WT 165 LBS, HT 67 IN, BMI 25.84 INDEX, BP 129/66 MM HG, HR 97 /MIN, RR 16 /MIN, TEMP 98.6 F, OXYGEN SAT % 96%, NA INITIALS SC 15:21, REVIEWED BY: EXAMINATION GENERAL EXAMINATION: GENERAL APPEARANCE:UNCOMFORTABLE. LUNGS:LUNG SOUNDS ARE CLEAR . HEART:HEART RATE REGULAR . MUSCULOSKELETAL:MUSCLE STRENGTH TESTING 5/5 BILATERAL LOWER EXTREMITIES. LUMBAR SACRAL SPINETRIGGER POINTS:, ELICITED WITH PALPATION OVER LEFT LUMBAR PARAVERTEBRAL MUSCLES AND INTO THE SACRUM. RESTRICTION OF ROM IN THIS AREA. NEUROLOGIC EXAM:DECREASED SENSATION TO LIGHT TOUCH RIGHT LATERAL CALF. ASSESSMENTS LUMBAGO WITH SCIATICA, LEFT SIDE - M54.42 (PRIMARY) LUMBAGO WITH SCIATICA, RIGHT SIDE - M54.41 TREATMENT LUMBAGO WITH SCIATICA, LEFT SIDE START PERCOCET TABLET, 5-325 MG, 1 TABLET NEEDED, ORALLY, Q8H PRN MDD3, 30 DAY(S), 30, REFILLS 0 [facility] MRI SPINE, L.S. WITH [id number] PROCEDURE CODES FA211 ESTABILISHED PATIENT [facility] CHARGE DISPOSITION & COMMUNICATION FOLLOW UP 3WK ELECTRONICALLY SIGNED BY TRICIA LADD ON 03/24/2017 AT 09:30 AM EST DISCLAIMER : THIS IS A VISIT SUMMARY EXTRACTED FROM THE [employer] CHART. IT IS NOT A COPY OF THE [employer] PROGRESS NOTE. JANETTE
== END ==
LOC: M PAIN 14:45
PROVIDERS: ATTEND Nurse Practitioner Family
DX: M54.42 Lumbago with sciatica, left side (principal); M54.41 Lumbago with sciatica, right side; G43.909 Migraine, unspecified, not intractable, without status migrainosus; K21.9 Gastro-esophageal reflux disease without esophagitis; Z79.899 Other long term (current) drug therapy; Z88.8 Allergy status to other drugs, medicaments and biological substances; Z91.048 Other nonmedicinal substance allergy status; J30.9 Allergic rhinitis, unspecified

== ENCOUNTER → 2017-03-24 | Outpatient (CLI) | payer BC | LOC: M PAIN 14:45 | DX: M54.42 Lumbago with sciatica, left side (principal); M54.41 Lumbago with sciatica, right side; K21.9 Gastro-esophageal reflux disease without esophagitis; G43.909 Migraine, unspecified, not intractable, without status migrainosus; E66.9 Obesity, unspecified; Z68.25 Body mass index [BMI] 25.0-25.9, adult; J30.89 Other allergic rhinitis; M32.9 Systemic lupus erythematosus, unspecified; R06.9 Unspecified abnormalities of breathing; L23.1 Allergic contact dermatitis due to adhesives; Z88.8 Allergy status to other drugs, medicaments and biological substances; Z79.899 Other long term (current) drug therapy | CPT/HCPCS: G0463 ==

== ENCOUNTER → 2017-06-13 | Outpatient (CLI) | payer BC | LOC: M PAIN 15:15 | DX: G89.29 Other chronic pain (principal); M54.42 Lumbago with sciatica, left side; M54.41 Lumbago with sciatica, right side; K21.9 Gastro-esophageal reflux disease without esophagitis; M51.36 Other intervertebral disc degeneration, lumbar region; G43.909 Migraine, unspecified, not intractable, without status migrainosus; E66.3 Overweight; J30.2 Other seasonal allergic rhinitis; E55.9 Vitamin D deficiency, unspecified; M32.9 Systemic lupus erythematosus, unspecified; M06.9 Rheumatoid arthritis, unspecified; Z68.25 Body mass index [BMI] 25.0-25.9, adult; H10.45 Other chronic allergic conjunctivitis; Z79.891 Long term (current) use of opiate analgesic; Z79.899 Other long term (current) drug therapy; Z88.8 Allergy status to other drugs, medicaments and biological substances; Z91.048 Other nonmedicinal substance allergy status | CPT/HCPCS: G0463 ==

== ENCOUNTER → 2017-09-05 | Outpatient (CLI) | payer BC | LOC: M SMT 15:58 | DX: M25.531 Pain in right wrist (principal) ==

== ENCOUNTER → 2017-12-10 | Outpatient (REF) | payer BC | LOC: M LAB REF 16:45 | DX: R30.0 Dysuria (principal) | CPT/HCPCS: 87086 ==

== ENCOUNTER → 2018-08-30 | Outpatient (CLI) | payer BC ==
[~2018-08-30] MED LIST changes: +FOLI1TAB11 PO; -FOLI1TAB4 PO; +METH2.5T48 PO; -METH2.5TA PO; +[UNRECOGNIZED DRUG - CODE] PO; -[UNRECOGNIZED DRUG - CODE] PO
--- NOTE | 2018-08-31 02:33 | REP ---
Clinical: Cervicalgia Technique: AP, lateral, flexion/extension, bilateral oblique and open mouth views of the cervical spine. Findings: Evidence of prior anterior fusion at C5-6 with satisfactory, stable appearance. Moderate multilevel degenerative changes include endplate sclerosis with marginal spurring and mild disc space narrowing. Alignment and lordosis maintained. Mild osteopenia suggested. No acute fracture or dislocation. Impression: Mild/moderate multilevel degenerative spondylosis. Electronically Signed by Foreign De La Cruz MD 08/31/2018 02:24 A
== END ==
LOC: M SMT 15:43
PROVIDERS: ATTEND Family Medicine
DX: M47.892 Other spondylosis, cervical region (principal); M54.2 Cervicalgia; R20.2 Paresthesia of skin

== ENCOUNTER 2019-01-08 21:15 | Emergency (ER) | payer BC ==
[~2019-01-08] VITALS: Ht 170.2 cm; Wt 75.0 kg
[~2019-01-08 21:15] MED LIST changes: -DULO1CAP2 PO; +DULO1CAP5 PO
[2019-01-08] MEDS ORDERED: BENL200I SC (21:26)
[2019-01-09 01:31] VITALS: BP 128/64
== END 2019-01-09 06:36 | disposition home or self-care (01) ==
LOC: M ED 21:15
DX: S01.01XA Laceration without foreign body of scalp, initial encounter (principal); W06.XXXA Fall from bed, initial encounter; Y92.092 Bedroom in other non-institutional residence as the place of occurrence of the external cause; M32.9 Systemic lupus erythematosus, unspecified; Z88.8 Allergy status to other drugs, medicaments and biological substances; Z91.048 Other nonmedicinal substance allergy status; Z79.899 Other long term (current) drug therapy

== ENCOUNTER → 2019-03-12 | Outpatient (REF) | payer BC ==
[~2019-03-12] MED LIST changes: +BENL200I SC
== END ==
LOC: M LAB REF 16:59
PROVIDERS: ATTEND Physician Assistant
DX: J02.9 Acute pharyngitis, unspecified (principal)

== ENCOUNTER → 2019-08-07 | Outpatient (REF) | payer BC | LOC: M LAB REF 12:32 | PROVIDERS: ATTEND Physician Assistant | DX: R05 Cough (principal) ==

== ENCOUNTER → 2020-04-19 | Outpatient (CLI) | payer SELFPAY ==
[~2020-04-19] MED LIST changes: -MOVA1TAB2 PO; +NALO25TA PO
== END ==
LOC: M LABSMTC 11:35
PROVIDERS: ATTEND Pediatrics
DX: Z20.828 Contact with and (suspected) exposure to other viral communicable diseases (principal)

== ENCOUNTER → 2020-05-09 | Outpatient (REF) | payer BC, OTHER | LOC: M LAB REF 15:49 | PROVIDERS: ATTEND Physician Assistant | DX: J01.90 Acute sinusitis, unspecified (principal) ==

== ENCOUNTER → 2020-11-04 | Outpatient (CLI) | payer BC ==
--- NOTE | 2020-11-04 17:15 | REP ---
INDICATION: POST MENOPAUSAL BLEEDING. COMPARISON: None. TECHNIQUE: Transabdominal and transvaginal scanning performed. FINDINGS: Uterine dimensions are 8.2 x 4.3 x 5.2 cm. Endometrial echo is 12 mm in AP dimension and centrally placed. The junctional zone is ill-defined. There tiny cystic structures at the border between the endometrium and myometrium. The findings suggest adenomyosis. Tiny nabothian cysts are seen in the region of the cervix. There appears to be a complex nabothian cyst in the proximal cervix measuring 1.2 x 1.0 x 1.6 cm. The bladder measures 5.7 x 5.3 x 9.1cm. The right ovary has dimensions of 2.4 x 1.1 x 2.1 cm. It's Doppler flow is normal with a resistive index of 0.70. The left ovary dimensions are 1.8 x 1.1 x 1.4 cm. Doppler evaluation is precluded by overlying bowel gas. There is no adnexal mass identified. No free fluid is seen in the cul-de-sac. IMPRESSION: Endometrial thickening up to 12 mm may indicate hyperplasia or neoplasm. The junctional zone is ill-defined and there are tiny cystic structures at the inner border of the myometrium suggesting adenomyosis. <Electronically signed by Andres Em > 11/04/20 3150
== END ==
LOC: M RAD 15:44
PROVIDERS: ATTEND Obstetrics & Gynecology
DX: N95.0 Postmenopausal bleeding (principal)

== ENCOUNTER → 2020-11-17 | Outpatient (CLI) | payer BC ==
[2020-11-17 17:57] LABS: BASO % 0.3 % (0.0-1.0); EOS % 0.3 % (0.0-3.0); HEMATOCRIT 45.8 % (36.0-47.0); HEMOGLOBIN 15.5 g/dl (12.0-15.5); LYMPH # 1.6 10^3/uL (1.5-5.0); LYMPH % 17.2 % (24.0-44.0); MEAN CORPUSCULAR HEMOGLOBIN 32.1 pg (27.0-33.0); MEAN CORPUSCULAR HGB CONC 33.8 g/dl (32.0-36.5); MEAN CORPUSCULAR VOLUME 94.8 fl (80.0-96.0); MONO # 0.7 10^3/uL (0.0-0.8); MONO % 7.7 % (2.0-8.0); NEUTROPHILS # 7.1 10^3/uL (1.5-8.5); PLATELET COUNT, AUTOMATED 257 10^3/uL (150-450); RED BLOOD COUNT 4.83 10^6/uL (4.00-5.40); WHITE BLOOD COUNT 9.5 10^3/uL (4.0-10.0)
[2020-11-17 18:14] LABS: C REACTIVE PROTEIN QUANTITATIV < 0.30 MG/DL (0.00-0.30); RHEUMATOID FACTOR QUANT < 10.0 IU/ML (<15.0)
[2020-11-17 19:47] LABS: ERYTHROCYTE SEDIMENTATION RATE 2 mm/hr (0-30)
== END ==
LOC: M PLALAB 14:19
PROVIDERS: ATTEND Family Medicine
DX: L23.9 Allergic contact dermatitis, unspecified cause (principal)

== ENCOUNTER → 2020-12-04 | Outpatient (REF) | payer BC | LOC: M LAB REF 18:59 | PROVIDERS: ATTEND Family Medicine | DX: R53.83 Other fatigue (principal); R06.02 Shortness of breath; R05 Cough ==

== ENCOUNTER → 2020-12-08 | Outpatient (CLI) | payer BC ==
--- NOTE | 2020-12-08 16:01 | REP ---
INDICATION: SHORTNESS OF BREATH COMPARISON: 03/12/2014 TECHNIQUE: PA and lateral. FINDINGS: The mediastinum and cardiac silhouette are normal. No focal consolidation, effusion, or pneumothorax. Mild bronchitis cannot be excluded. The skeletal structures demonstrate age-related changes. Prior cholecystectomy. IMPRESSION: Cannot exclude mild bronchitis. No focal consolidation. <Electronically signed by Foreign De La Cruz > 12/08/20 0231
== END ==
LOC: M PLAIMG 15:43
PROVIDERS: ATTEND Physician Assistant
DX: R06.02 Shortness of breath (principal)

== ENCOUNTER → 2021-01-06 | Outpatient (REF) | payer BC ==
[~2021-01-06] MED LIST changes: +AZEL1SPR3 NARES; +FIOR1CAP PO; +IMIT100T PO
== END ==
LOC: M LAB REF 18:30
PROVIDERS: ATTEND Physician Assistant
DX: J01.90 Acute sinusitis, unspecified (principal)

== ENCOUNTER → 2021-01-09 | Outpatient (CLI) | payer BC | LOC: M LABSMTC 08:59 | PROVIDERS: ATTEND Anesthesiology | DX: Z01.818 Encounter for other preprocedural examination (principal); Z11.52 Encounter for screening for COVID-19 ==

== ENCOUNTER → 2021-01-13 | Outpatient (CLI) | payer BC ==
[~2021-01-13] MED LIST changes: +PERC5TAB12 PO
--- NOTE | 2021-01-14 09:15 | ECGEPIP ---
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 No prior ECG available for comparison at the time of interpretation. Electronically Signed on 01-14-2021 9:15:03 EDT by Bryce Sheth
== END ==
LOC: M EKG 12:51
PROVIDERS: ATTEND Anesthesiology
DX: Z01.818 Encounter for other preprocedural examination (principal)

== ENCOUNTER 2021-01-14 10:19 | Day surgery (SDC) | payer BC ==
[~2021-01-14] VITALS: Ht 170.2 cm; Wt 74.8 kg
[~2021-01-14 10:19] MED LIST changes: +LR 1,000 ML IV SCH; -PERC5TAB12 PO; +ceFAZolin SOD 2 GM in IV 1 EA IV ONE
[2021-01-14] MEDS ORDERED: LIDOCAINE 2% 100MG/5ML SDV (FOR ANES.) As Ordered ONE (10:41)
[2021-01-14] MEDS ORDERED: ONDANSETRON 4MG/2ML VIAL As Ordered ONE (10:41)
[2021-01-14] MEDS ORDERED: SUGAMMADEX SODIUM 500 MG/5 ML VIAL (BRIDION) As Ordered ONE (10:41)
[2021-01-14] MEDS ORDERED: MIDAZOLAM INJ 2MG/2ML VIAL (J2250 PER 1MG) As Ordered ONE (10:41)
[2021-01-14] MEDS ORDERED: fentaNYL 100 MCG/2 ML INJECTION (J3010) As Ordered ONE (10:41)
[2021-01-14] MEDS ORDERED: HYDROmorphone HCL 2 MG/ML 1ML VIAL As Ordered ONE (10:41)
[2021-01-14] MEDS ORDERED: dexameTHASONE 4 MG/ML 1ML VIAL (J1100 PER 1MG) As Ordered ONE (10:41)
[2021-01-14] MEDS ORDERED: ROCURONIUM BROMIDE 50 MG/5 ML VIAL As Ordered ONE (10:41)
[2021-01-14] MEDS ORDERED: propofoL 200 MG/20 ML VIAL As Ordered ONE (10:41)
[2021-01-14] MEDS ORDERED: KETOROLAC 60MG 2ML VIAL As Ordered ONE (10:41)
[2021-01-14] MEDS ORDERED: ACETAMINOPHEN 1000MG 100ML IV BTL (OFIRMEV) (J0131 PER 10MG) As Ordered ONE (10:41)
[2021-01-14 10:49] LABS: HEMATOCRIT 44.7 % (36.0-47.0); HEMOGLOBIN 15.2 g/dl (12.0-15.5); MEAN CORPUSCULAR HEMOGLOBIN 32.3 pg (27.0-33.0); MEAN CORPUSCULAR VOLUME 94.9 fl (80.0-96.0); PLATELET COUNT, AUTOMATED 236 10^3/uL (150-450); RED BLOOD COUNT 4.71 10^6/uL (4.00-5.40); WHITE BLOOD COUNT 6.9 10^3/uL (4.0-10.0)
[2021-01-14 11:11] LABS: BLOOD UREA NITROGEN 12 MG/DL (7-18); CALCIUM LEVEL 8.6 MG/DL (8.5-10.1); CARBON DIOXIDE LEVEL 29 MEQ/L (21-32); CHLORIDE LEVEL 105 MEQ/L (98-107); CREATININE FOR GFR 0.87 MG/DL (0.55-1.30); GLOMERULAR FILTRATION RATE > 60.0 (>51); GLUCOSE, FASTING 83 MG/DL (70-100); SODIUM LEVEL 139 MEQ/L (136-145)
[2021-01-14] MEDS ORDERED: SCOPOLAMINE 1MG TRANSDERMAL PATCH TOP ONE (11:25)
[2021-01-14] MEDS ORDERED: BUPIVACAINE/EPIN 0.25% 30 ML VIAL As Ordered ONE (11:55)
[2021-01-14] MEDS ORDERED: FLUORESCEIN 10% (100MG/ML) 5 ML VIAL As Ordered ONE (11:55)
[2021-01-14] MEDS ORDERED: PERC5TAB12 PO (14:06)
[2021-01-14] MEDS ORDERED: ONDANSETRON 4MG/2ML VIAL IV PRN (14:15)
[2021-01-14] MEDS ORDERED: LR 1,000 ML IV SCH ×2 (14:15→14:25)
[2021-01-14] MEDS ORDERED: fentaNYL 100 MCG/2 ML INJECTION (J3010) IV PRN (14:15)
[2021-01-14] MEDS ORDERED: oxyCODONE 5MG TAB PO PRN (14:15)
[2021-01-14] MEDS ORDERED: HYDROMORPHONE HCL 0.5 MG/ 0.5 ML SYRINGE (J1170 PER 1) IV PRN (14:15)
--- NOTE | 2021-01-14 14:27 | RO ---
OPERATIVE NOTE DATE OF OPERATION: 01/14/2021 Candida is a 55-year-old female with postmenopausal bleeding. On biopsy, was found to have questionable adenomyosis. After extensive counseling, the decision was made to proceed for robotic-assisted total hysterectomy and bilateral salpingo-oophorectomy as well as cystoscopy. PREOPERATIVE DIAGNOSIS: 1. Postmenopausal bleeding. 2. Adenomyosis. POSTOPERATIVE DIAGNOSIS: 1. Postmenopausal bleeding. 2. Adenomyosis. PROCEDURE: 1. Robotic-assisted total hysterectomy. 2. Bilateral salpingo-oophorectomy. 3. Cystoscopy. SURGEON: JUDITH CIFUENTES DO ANESTHESIA: General. COMPLICATIONS: None. ESTIMATED BLOOD LOSS: Less than 20 ml. SPECIMENS SENT TO THE LABORATORY: Uterus, cervix, tubes and ovary. FINDINGS: Normal appearing uterus, the right ovary appeared to be absent, normal tube. On cystoscopy, bilateral ureteral jets were noted. No evidence of any bladder injury. DESCRIPTION OF PROCEDURE: After obtaining informed consent the patient was taken to the operating room where general anesthestic was found to be adequate. She was then prepped and draped in usual sterile fashion in dorsal lithotomy position. At this point a Landaverde catheter was placed in the bladder for drainage. We then turned our attention to the abdomen were a Veress needle as used at the umbilicus. The abdomen was insufflated with CO2 gas of approximately 3.5 liters. We then placed an 8 mm supraumbilical incision and under direct visualization an 8 mm trocar was placed for the camera port. We then placed left lateral ports for robotic arm 1 the assist port and on the right 8 mm lateral port was placed for robotic arm 2. The patient was then placed in steep Trendelenburg. The robot was brought to the patient's right side. The camera port was then docked in the usual fashion. Proper targeting was done, after passing the targeting phase, the robotic arm 1 and 2 were then docked in the usual fashion. We placed VesselSealer on arm 1 and bipolar grasper on arm 2. I then unscrubbed and went to the surgeon's console and began the surgery. At this point, the pelvis and abdomen were inspected with the above noted finding. Mild adhesions were noted to the right side which was freed up with a series of blunt and sharp dissection. We then identified the infundibulopelvic ligament, this was cauterized and taken all the way down to the round ligament. The round ligament was also cauterized. The uterine artery was cauterized down to the uterosacral ligament; using the VesselSealer this was cauterized and cut. The anterior left side of the broad ligament was then dissected to create a bladder flap, the opposite side was done in a similar fashion. The bladder flap was completed and the bladder was pushed completely out of the operating field. The uterus was pushed up, the VesselSealer removed and the Endoshears were placed. Anterior and posterior colpotomy was performed. The uterus as well as fallopian tube and ovary were removed through the vagina. A 2-0 V-Loc suture was introduced through the assist port and the vaginal cuff was then closed in a running fashion using 2-0 V-Loc suture. The peritoneum over the vaginal cuff was also closed in a similar fashion. The pelvis was copiously irrigated with normal saline and suctioned out. I then rescrubbed and went to the patient's side, retrograde filled the bladder with 230 ml of normal saline, 1 ml of fluorescein was given by the anesthesiologist to assist in the cystoscopy. At this point, the Landaverde catheter was removed, the cystoscope was inserted. Bilateral ureteral jets noted with yellow dye coming out of both ureters, no evidence of any bladder injury noted. This is when the cystoscope was removed. The Landaverde catheter was placed back in the bladder for drainage. All instruments were removed. The laparoscopic ports were then closed using 3-0 Vicryl in a subcuticular fashion. 0.25% Marcaine was placed. The patient tolerated the procedure well and was transferred to recovery room in stable condition. cc: [facility]
[2021-01-14] MEDS ORDERED: PERCOCET 5MG/325MG TAB PO PRN (14:30)
[2021-01-14] MEDS ORDERED: METOCLOPRAMIDE INJ 10MG/2ML VIAL (J2765 PER 1) IV SCH (15:55)
[2021-01-14 17:55] VITALS: BP 121/57
[2021-01-14] MEDS ORDERED: IBUPROFEN 800 MG TAB PO SCH (18:00)
[2021-01-14] MEDS ORDERED: SIMETHICONE 80MG CHEW TAB PO SCH (18:00)
== END 2021-01-14 18:10 | disposition home or self-care (01) ==
LOC: M SDC 10:19
PROVIDERS: ATTEND Obstetrics & Gynecology
DX: N85.8 Other specified noninflammatory disorders of uterus (principal); N72 Inflammatory disease of cervix uteri; K21.9 Gastro-esophageal reflux disease without esophagitis; D89.89 Other specified disorders involving the immune mechanism, not elsewhere classified; T88.59XD Other complications of anesthesia, subsequent encounter; G43.909 Migraine, unspecified, not intractable, without status migrainosus; F41.9 Anxiety disorder, unspecified; Z88.8 Allergy status to other drugs, medicaments and biological substances; Z91.048 Other nonmedicinal substance allergy status; Z79.899 Other long term (current) drug therapy; Z79.890 Hormone replacement therapy; J30.2 Other seasonal allergic rhinitis
CPT/HCPCS: 36415; 58571; 80048; 85027; 86850; 86900; 86901; 88307; J0131; J0690; J1100; J1170; J1885; J2250; J2405; J2765; J3010; S2900

== ENCOUNTER → 2021-02-03 | Outpatient (REF) | payer BC ==
[~2021-02-03] MED LIST changes: -LR 1,000 ML IV SCH; +PERC5TAB12 PO; -ceFAZolin SOD 2 GM in IV 1 EA IV ONE
== END ==
LOC: M LAB REF 16:56
PROVIDERS: ATTEND Physician Assistant
DX: R05.3 Chronic cough (principal)

== ENCOUNTER → 2021-05-30 | Outpatient (CLI) | payer BC, OTHER ==
[2021-05-30 12:40] LABS: BASO % 0.3 % (0.0-1.0); EOS % 0.2 % (0.0-3.0); HEMATOCRIT 45.3 % (36.0-47.0); LYMPH # 1.5 10^3/uL (1.5-5.0); LYMPH % 14.2 % (24.0-44.0); MEAN CORPUSCULAR HEMOGLOBIN 31.3 pg (27.0-33.0); MEAN CORPUSCULAR HGB CONC 33.1 g/dl (32.0-36.5); MEAN CORPUSCULAR VOLUME 94.6 fl (80.0-96.0); MONO # 0.8 10^3/uL (0.0-0.8); NEUTROPHILS # 7.9 10^3/uL (1.5-8.5); NEUTROPHILS % 76.8 % (36.0-66.0); PLATELET COUNT, AUTOMATED 254 10^3/uL (150-450); RED BLOOD COUNT 4.79 10^6/uL (4.00-5.40); WHITE BLOOD COUNT 10.3 10^3/uL (4.0-10.0)
[2021-05-30 13:09] LABS: ALBUMIN 3.9 GM/DL (3.2-5.2); ALT/SGPT 34 U/L (12-78); BILIRUBIN,TOTAL 0.5 MG/DL (0.2-1.0); BLOOD UREA NITROGEN 23 MG/DL (7-18); CALCIUM LEVEL 9.3 MG/DL (8.5-10.1); CARBON DIOXIDE LEVEL 24 MEQ/L (21-32); CHLORIDE LEVEL 106 MEQ/L (98-107); CREATININE FOR GFR 0.85 MG/DL (0.55-1.30); FREE T4 0.92 NG/DL (0.76-1.46); GLOMERULAR FILTRATION RATE > 60.0 (>51); GLUCOSE, FASTING 92 MG/DL (70-100); POTASSIUM SERUM 4.3 MEQ/L (3.5-5.1); SODIUM LEVEL 138 MEQ/L (136-145); TOTAL PROTEIN 7.1 GM/DL (6.4-8.2)
== END ==
LOC: M LAB 11:52
PROVIDERS: ATTEND Nurse Practitioner Adult Health
DX: M32.10 Systemic lupus erythematosus, organ or system involvement unspecified (principal)

== ENCOUNTER → 2021-05-30 | Outpatient (CLI) | payer BC, OTHER ==
[2021-06-01 13:03] LABS: ESTRADIOL 85.1 PG/ML; FOLLICLE STIMULATING HORMONE 5.4 mIU/mL; LUTEINIZING HORMONE 3.3 mIU/mL; PROGESTERONE 0.21 NG/ML
== END ==
LOC: M LAB 11:50
PROVIDERS: ATTEND Obstetrics & Gynecology
DX: N95.1 Menopausal and female climacteric states (principal); E34.9 Endocrine disorder, unspecified; R53.83 Other fatigue

== ENCOUNTER → 2022-07-10 | Outpatient (CLI) | payer BC ==
[~2022-07-10] MED LIST changes: +MONT-5 PO; -SING10TA32 PO
[2022-07-10 10:58] LABS: BASO % 0.4 % (0.0-1.0); EOS % 0.2 % (0.0-3.0); HEMATOCRIT 42.8 % (36.0-47.0); HEMOGLOBIN 14.2 g/dl (12.0-15.5); LYMPH # 1.4 10^3/uL (1.5-5.0); LYMPH % 25.9 % (24.0-44.0); MEAN CORPUSCULAR HEMOGLOBIN 33.2 pg (27.0-33.0); MEAN CORPUSCULAR HGB CONC 33.2 g/dl (32.0-36.5); MONO # 0.6 10^3/uL (0.0-0.8); MONO % 10.1 % (2.0-8.0); NEUTROPHILS # 3.5 10^3/uL (1.5-8.5); PLATELET COUNT, AUTOMATED 187 10^3/uL (150-450); RED BLOOD COUNT 4.28 10^6/uL (4.00-5.40); WHITE BLOOD COUNT 5.5 10^3/uL (4.0-10.0)
[2022-07-10 11:25] LABS: HEMOGLOBIN A1c 4.7 % (4.0-6.0)
[2022-07-10 11:32] LABS: ALBUMIN 3.9 G/DL (3.2-5.2); ALKALINE PHOSPHATASE 80 U/L (46-116); ALT/SGPT 33 U/L (7.0-40); AST/SGOT 25 U/L (<34); BILIRUBIN,TOTAL 0.6 MG/DL (0.3-1.2); BLOOD UREA NITROGEN 18 MG/DL (9-23); CALCIUM LEVEL 9.3 MG/DL (8.5-10.1); CARBON DIOXIDE LEVEL 28 MMOL/L (20-31); CHLORIDE LEVEL 107 MMOL/L (98-107); CHOLESTEROL LEVEL 180 MG/DL (<200); CHOLESTEROL RISK RATIO 3.55 (<5); CREATININE FOR GFR 0.76 MG/DL (0.55-1.30); FREE T4 1.03 NG/DL (0.89-1.76); GLOMERULAR FILTRATION RATE > 60.0 (>51); GLUCOSE, FASTING 85 MG/DL (60-100); HDL CHOLESTEROL 50.7 MG/DL (>40); LDL CHOLESTEROL 106.7 MG/DL (<100); NON-HDL-C 129.3 MG/DL; POTASSIUM SERUM 4.9 MMOL/L (3.5-5.1); SODIUM LEVEL 139 MMOL/L (136-145); THYROID STIMULATING HORMONE 2.438 uIU/ML (0.55-4.78); TOTAL PROTEIN 6.4 G/DL (5.7-8.2); TRIGLYCERIDES LEVEL 113 MG/DL (<150)
== END ==
LOC: M LAB 09:53
PROVIDERS: ATTEND Family Medicine
DX: Z13.21 Encounter for screening for nutritional disorder (principal)

== ENCOUNTER → 2022-10-07 | Outpatient (CLI) | payer BC ==
[2022-10-07 10:55] LABS: BASO % 0.7 % (0.0-1.0); EOS % 0.2 % (0.0-3.0); HEMATOCRIT 47.1 % (36.0-47.0); HEMOGLOBIN 15.5 g/dl (12.0-15.5); LYMPH # 1.3 10^3/uL (1.5-5.0); MEAN CORPUSCULAR HGB CONC 32.9 g/dl (32.0-36.5); MEAN CORPUSCULAR VOLUME 100.4 fl (80.0-96.0); MONO # 0.5 10^3/uL (0.0-0.8); MONO % 8.9 % (2.0-8.0); NEUTROPHILS # 3.9 10^3/uL (1.5-8.5); NEUTROPHILS % 67.9 % (36.0-66.0); PLATELET COUNT, AUTOMATED 187 10^3/uL (150-450); RED BLOOD COUNT 4.69 10^6/uL (4.00-5.40); WHITE BLOOD COUNT 5.8 10^3/uL (4.0-10.0)
[2022-10-07 11:10] LABS: INR 0.9; PROTHROMBIN TIME 12.3 SECONDS (12.5-14.5)
[2022-10-07 11:11] LABS: PARTIAL THROMBOPLASTIN TIME 26.5 SECONDS (24.8-34.2)
[2022-10-07 11:19] LABS: THYROID STIMULATING HORMONE 2.043 uIU/ML (0.55-4.78)
[2022-10-07 11:21] LABS: ALBUMIN 4.1 G/DL (3.2-5.2); ALKALINE PHOSPHATASE 68 U/L (46-116); ALT/SGPT 27 U/L (7.0-40); AST/SGOT 19 U/L (<34); BILIRUBIN,TOTAL 0.6 MG/DL (0.3-1.2); BLOOD UREA NITROGEN 15 MG/DL (9-23); CALCIUM LEVEL 9.3 MG/DL (8.5-10.1); CARBON DIOXIDE LEVEL 27 MMOL/L (20-31); CHLORIDE LEVEL 104 MMOL/L (98-107); CREATININE FOR GFR 0.84 MG/DL (0.55-1.30); FREE T4 1.19 NG/DL (0.89-1.76); GLOMERULAR FILTRATION RATE > 60.0 (>51); GLUCOSE, FASTING 89 MG/DL (60-100); POTASSIUM SERUM 4.6 MMOL/L (3.5-5.1); SODIUM LEVEL 137 MMOL/L (136-145); TOTAL PROTEIN 6.6 G/DL (5.7-8.2)
== END ==
LOC: M LAB 09:42
PROVIDERS: ATTEND Nurse Practitioner Adult Health
DX: Z01.818 Encounter for other preprocedural examination (principal)

== ENCOUNTER 2022-11-02 09:50 | Outpatient (RCR) | payer BC | END 2022-11-15 | LOC: M PT 09:50 | PROVIDERS: ATTEND Otolaryngology | DX: M54.2 Cervicalgia (principal) ==

== ENCOUNTER 2022-11-18 14:05 | Outpatient (RCR) | payer BC | END 2022-12-16 | LOC: M PT 14:05 | PROVIDERS: ATTEND Otolaryngology | DX: M54.2 Cervicalgia (principal); M26.629 Arthralgia of temporomandibular joint, unspecified side ==

== ENCOUNTER → 2022-11-22 | Outpatient (CLI) | payer BC | LOC: M LAB 13:00 → M RAD 13:00 | PROVIDERS: ATTEND Nurse Practitioner Adult Health | DX: K59.00 Constipation, unspecified (principal) ==

== ENCOUNTER → 2023-01-05 | Outpatient (CLI) | payer BC ==
[2023-01-05 13:52] LABS: BLOOD UREA NITROGEN 19 MG/DL (9-23); CREATININE FOR GFR 0.84 MG/DL (0.55-1.30); GLOMERULAR FILTRATION RATE > 60.0 (>51)
== END ==
LOC: M LAB 12:50
PROVIDERS: ATTEND Internal Medicine Gastroenterology
DX: R10.32 Left lower quadrant pain (principal)

== ENCOUNTER → 2023-01-20 | Outpatient (CLI) | payer BC | LOC: M WHC 07:58 | PROVIDERS: ATTEND Internal Medicine Gastroenterology | DX: R10.13 Epigastric pain (principal); R10.32 Left lower quadrant pain ==

== ENCOUNTER → 2023-02-01 | Outpatient (CLI) | payer OTHER, BC | LOC: M RAD 11:05 | PROVIDERS: ATTEND Physician Assistant Surgical | DX: R10.9 Unspecified abdominal pain (principal) ==

== ENCOUNTER → 2023-03-23 | Outpatient (REF) | payer BC, OTHER | LOC: M LAB REF 17:07 | PROVIDERS: ATTEND Family Medicine | DX: N39.0 Urinary tract infection, site not specified (principal) ==

== ENCOUNTER → 2023-06-03 | Outpatient (REF) | payer BC | LOC: M LAB REF 15:27 | PROVIDERS: ATTEND Nurse Practitioner Adult Health | DX: R31.9 Hematuria, unspecified (principal) ==

== ENCOUNTER → 2023-07-05 | Outpatient (CLI) | payer OTHER | LOC: M RAD 15:45 | PROVIDERS: ATTEND Chiropractor | DX: M54.2 Cervicalgia (principal) ==

== ENCOUNTER → 2023-12-22 | Outpatient (REF) | payer BC, OTHER | LOC: M LAB REF 17:36 | PROVIDERS: ATTEND Family Medicine | DX: R10.2 Pelvic and perineal pain (principal) ==

== ENCOUNTER → 2024-01-13 | Outpatient (REF) | payer OTHER | LOC: M LAB REF 20:00 | DX: Z11.6 Encounter for screening for other protozoal diseases and helminthiases (principal) ==

== ENCOUNTER → 2024-03-27 | Outpatient (CLI) | payer OTHER ==
[~2024-03-27] MED LIST changes: +PROHANCE 279.3MG/ML 15ML VIAL As Ordered ONE
== END ==
LOC: M RAD 14:28
PROVIDERS: ATTEND Internal Medicine
DX: R92.30 Dense breasts, unspecified (principal); Z80.3 Family history of malignant neoplasm of breast
CPT/HCPCS: A9576; C8908

== ENCOUNTER → 2024-10-24 | Outpatient (POV) | payer OTHER ==
[~2024-10-24] VITALS: Ht 165.1 cm; Wt 76.4 kg
[~2024-10-24] MED LIST changes: +AIMO70IN2 SQ; -AMIT24CA7 PO; +ESTR1TAB PO; +FAMO40TA3 PO; +LUBI24CA32 PO; +MAGN400C2 PO; +MULT1TAB8 PO; +PANT40TA29 PO; -PROHANCE 279.3MG/ML 15ML VIAL As Ordered ONE; +PRUC2TAB PO; +RITU10VLL IV; +VITA-243 PO; +VITAD400CA FT
[2024-10-24 08:10] VITALS: BP 122/70; O2SAT 99
[2024-10-24 09:39] LABS: APPEARANCE, URINE HAZY (CLEAR); BACTERIA, URINE AUTO NEGATIVE (NEGATIVE); BILIRUBIN, URINE AUTO NEGATIVE (NEGATIVE); BLOOD, URINE BLOOD NEGATIVE (NEGATIVE); GLUCOSE, URINE (UA) AUTO NEGATIVE (NEGATIVE); KETONE, URINE AUTO NEGATIVE (NEGATIVE); LEUKOCYTE ESTERASE, URINE AUTO NEGATIVE (NEGATIVE); MUCUS, URINE SMALL (NEGATIVE); NITRITE, URINE AUTO NEGATIVE (NEGATIVE); PROTEIN, URINE AUTO NEGATIVE (NEGATIVE); RBC, URINE AUTO 2 /HPF (0-3); SPECIFIC GRAVITY URINE AUTO 1.021 (1.002-1.035); SQUAMOUS EPITHELIAL CELL UR AU 4 /HPF (0-6); UROBILINOGEN, URINE AUTO 0.2 mg/dL (0.0-2.0); WBC, URINE AUTO 1 /HPF (0-3)
== END ==
LOC: M IRPOV 07:43
PROVIDERS: ATTEND Radiology Diagnostic Radiology
DX: N94.89 Other specified conditions associated with female genital organs and menstrual cycle (principal); Z90.49 Acquired absence of other specified parts of digestive tract; Z96.1 Presence of intraocular lens; Z98.41 Cataract extraction status, right eye; Z98.42 Cataract extraction status, left eye
CPT/HCPCS: 81001; G0463

== ENCOUNTER → 2024-12-13 | Outpatient (CLI) | payer OTHER ==
[~2024-12-13] MED LIST changes: +CARDIAC STRESS TEST RESCUE BOX 1 KIT EA XX ONE; +HEPARIN 1,000 UNITS/ML 10 ML VIAL (FOR RADIOLOGY & DIALYSIS ONLY) IV PRN; +NS (Normal Saline) 0.9% 1,000 ML IV SCH
[2024-12-13 12:10] VITALS: TEMP 97.7
[2024-12-13] MEDS: NS (Normal Saline) 0.9% 1,000 ML IV SCH (12:36)
[2024-12-13] MEDS: MIDAZOLAM INJ 2 MG/2 ML VIAL IV PRN (13:26)
[2024-12-13] MEDS: MIDAZOLAM INJ 2 MG/2 ML VIAL IV STA (15:02)
[2024-12-13] MEDS: NITROGLYCERIN IN D5W 25 MG/250 ML (100 MCG/ML) IV STA (15:04)
[2024-12-13] MEDS: ISOVUE-300 61% 100 ML VIAL IV SCH (15:17)
[2024-12-13] MEDS: LIDOCAINE 1% MDV 20 ML VIAL SC SCH (15:18)
[2024-12-13] MEDS: SODIUM TETRADECYL SULFATE (1%) 20MG/2ML VIAL (SOTRADECOL) IV SCH (15:18)
[2024-12-13] MEDS: ACETAMINOPHEN 325 MG TAB PO PRN (16:14)
[2024-12-13 17:25] VITALS: BP 113/54; O2SAT 97
== END ==
LOC: M IRPRO 11:57
PROVIDERS: ATTEND Registered Nurse School
DX: R10.2 Pelvic and perineal pain (principal)
CPT/HCPCS: 37241; 99152; 99153; C1874; C1887; J2250; J3010; Q9967

== ENCOUNTER → 2024-12-20 | Outpatient (CLI) | payer OTHER ==
[~2024-12-20] MED LIST changes: -CARDIAC STRESS TEST RESCUE BOX 1 KIT EA XX ONE; -HEPARIN 1,000 UNITS/ML 10 ML VIAL (FOR RADIOLOGY & DIALYSIS ONLY) IV PRN; -NS (Normal Saline) 0.9% 1,000 ML IV SCH
[2024-12-20 11:07] LABS: CALCIUM LEVEL 9.4 MG/DL (8.3-10.6); CARBON DIOXIDE LEVEL 27.0 MMOL/L (20-31); CHLORIDE LEVEL 106.0 MMOL/L (98-107); CREATININE FOR GFR 0.8 MG/DL (0.55-1.30); GLOMERULAR FILTRATION RATE 83.8 (>45); POTASSIUM SERUM 4.5 MMOL/L (3.5-5.1); SODIUM LEVEL 143.0 MMOL/L (136-145)
== END ==
LOC: M LAB 10:00
PROVIDERS: ATTEND Radiology Diagnostic Radiology
DX: I87.8 Other specified disorders of veins (principal)

== ENCOUNTER → 2025-01-04 | Outpatient (CLI) | payer OTHER ==
[~2025-01-04] MED LIST changes: +ISOVUE-370 76% 100 ML VIAL As Ordered ONE
== END ==
LOC: M RAD 10:41
PROVIDERS: ATTEND Radiology Diagnostic Radiology
DX: I87.8 Other specified disorders of veins (principal); Z98.890 Other specified postprocedural states
CPT/HCPCS: 74177; Q9967

== ENCOUNTER → 2025-01-09 | Outpatient (POV) | payer OTHER ==
[~2025-01-09] VITALS: Ht 170.2 cm; Wt 77.3 kg
[~2025-01-09] MED LIST changes: +CARDIAC STRESS TEST RESCUE BOX 1 KIT EA XX ONE; -ISOVUE-370 76% 100 ML VIAL As Ordered ONE
[2025-01-09 10:09] VITALS: BP 92/68; O2SAT 98
[2025-01-09 11:42] LABS: APPEARANCE, URINE HAZY (CLEAR); BACTERIA, URINE AUTO 1+ (NEGATIVE); BILIRUBIN, URINE AUTO NEGATIVE (NEGATIVE); BLOOD, URINE BLOOD NEGATIVE (NEGATIVE); GLUCOSE, URINE (UA) AUTO NEGATIVE (NEGATIVE); KETONE, URINE AUTO NEGATIVE (NEGATIVE); LEUKOCYTE ESTERASE, URINE AUTO TRACE (NEGATIVE); NITRITE, URINE AUTO NEGATIVE (NEGATIVE); PROTEIN, URINE AUTO NEGATIVE (NEGATIVE); RBC, URINE AUTO 0 /HPF (0-3); SPECIFIC GRAVITY URINE AUTO 1.012 (1.002-1.035); SQUAMOUS EPITHELIAL CELL UR AU 2 /HPF (0-6); UROBILINOGEN, URINE AUTO 0.2 mg/dL (0.0-2.0); WBC, URINE AUTO 0 /HPF (0-3)
== END ==
LOC: M IRPOV 09:59
PROVIDERS: ATTEND Registered Nurse School
DX: Z48.812 Encounter for surgical aftercare following surgery on the circulatory system (principal); N94.89 Other specified conditions associated with female genital organs and menstrual cycle; Z88.8 Allergy status to other drugs, medicaments and biological substances; Z91.048 Other nonmedicinal substance allergy status
CPT/HCPCS: 81001; G0463

== ENCOUNTER → 2025-03-21 | Outpatient (CLI) | payer OTHER ==
[~2025-03-21] MED LIST changes: -CARDIAC STRESS TEST RESCUE BOX 1 KIT EA XX ONE
== END ==
LOC: M SLEEP 20:00
PROVIDERS: ATTEND Internal Medicine
DX: G47.33 Obstructive sleep apnea (adult) (pediatric) (principal); R53.83 Other fatigue